=== PATIENT | female | born 1970 | race Caucasian/White ===

== ENCOUNTER 2019-12-05 06:00 | Emergency (ER) | payer OTHER, SELFPAY ==
[2019-12-05 06:32] VITALS: BP 142/89; PULSE 80; RESP 18; TEMP 36.6; O2SAT 99; BMI 32.0
--- NOTE | 2019-12-05 06:39 | ECG_ITS ---
Test Reason : EPIGASTRIC PAIN Blood Pressure : / mmHG Vent. Rate : 061 BPM Atrial Rate : 061 BPM P-R Int : 132 ms QRS Dur : 080 ms QT Int : 430 ms P-R-T Axes : 020 -02 028 degrees QTc Int : 432 ms Normal sinus rhythm with sinus arrhythmia Low voltage QRS Left axis deviation Abnormal ECG When compared with ECG of 17-OCT-2015 13:57, T wave inversion less evident in Lateral leads Referred By: May Keita Electronically Signed By:KIET MARTINS MD
--- NOTE | 2019-12-05 07:07 | ED_ITS ---
HPI - Abdominal Pain General Chief Complaint: Abdominal Pain Stated Complaint: Abd pain Time Seen by Provider: 12/05/19 07:07 Source: patient Mode of arrival: ambulatory Limitations: no limitations History of Present Illness MD elicited complaint: abdominal pain Onset (ago): day(s) (last night) Pain Consistency: constant Location: epigastric Severity: moderate Quality: stabbing and aching Radiation: epigastric Migration to: no migration Exacerbating factors: nothing Relieving factors: nothing Associated symptoms: nausea and vomiting Related Data Previous Rx's Medication Instructions Recorded hydrocodone-acetaminophen 1 tab PO Q6H PRN #14 tab 12/05/19 ondansetron 4 mg PO Q8H PRN #20 tab 12/05/19 Allergies Allergy/AdvReac Type Severity Reaction Status Date / Time No Known Allergies Allergy Verified 12/05/19 07:39 [No Known Allergies*] Review of Systems Review of Systems Constitutional : No Weight loss, No Fever, No Chills ENT/Mouth : No sore throat, No Rhinorrhea Eyes: No Swelling, No Redness Cardiovascular : No Chest Pain, No SOB, NoEdema Respiratory : No Cough, No Sputum, No Wheezing Gastrointestinal : Positive Nausea, Positive Vomiting, no Diarrhea, positive abdominal Pain, No Hematochezia, No Melena Genitourinary : No Dysuria, No Urinary Frequency, No Hematuria, No Urgency Musculoskeletal : No joint pain, No Myalgias, No Joint Swelling Skin : No Skin Lesions, No rash Neuro : No Weakness, No Numbness, No Dizziness, No Headache Psych : No Anxiety/Panic, No Depression Heme/Lymph: No Bruising, No Lymphadenopathy Endocrine : No Polyuria, No Polydipsia All other systems reviewed and are negative. Physical Exam Vital Signs: Vital Signs: Vital Signs Temp Pulse Resp BP Pulse Ox 12/05/19 10:06 61 16 144/60 H 98 12/05/19 09:10 62 130/60 12/05/19 09:00 97.7 F 65 18 130/69 97 12/05/19 06:32 97.8 F 80 18 142/89 H 99 Body Mass Index 32.0 Appearance: Alert. Oriented X3. No acute distress. Eyes: Pupils equal, round and reactive to light. ENT: Pharynx normal. Neck: Normal inspection. Neck supple. CVS: Normal heart rate and rhythm. Pulses normal. Respiratory: No respiratory distress. Breath sounds normal. Abdomen: Soft and moderate ttp epigastric and RUQ. Skin: Skin warm and dry. Normal skin color. Normal skin turgor. Extremities: No lower extremity edema. No calf ttp Neuro: Oriented X 3. No motor deficit. No sensory deficit. Course Course Course Narrative: tolerating PO feels much better, okay to go home, afebrile, pain resolved, no obstructive labs, will DC with pain meds and surgery referral MDM - Abdominal Pain MDM Narrative Medical decision making narrative: 49 yo female with epigastric and RUQ pain following eating canned spaghetti will need labs, EKG, US to evaluate GB, IVF and IV morphine for pain, dispo per results and findings Differential Diagnosis Differential diagnosis: Likely abdominal pain and gastritis Lab Data Result diagrams: 12/05/19 07:51 12/05/19 07:51 Labs: Lab Results 12/05/19 12/05/19 12/05/19 Range/Units 07:51 07:51 07:51 WBC 11.7 H (4.8-10.8) X10*3/uL RBC 4.35 (4.20-5.50) X10*6/uL Hgb 12.7 (12.0-16.0) g/dl Hct 39.1 (37-47) % MCV 89.9 (80-98) fL MCH 29.2 (27.0-33.0) pg MCHC 32.5 (31.0-35.0) g/dl RDW 12.6 (11.0-16.0) % Plt Count 312 (160-400) X10*3/uL MPV 9.8 (9.4-12.3) fL Immature Gran % (Auto) 0.3 (0.0-0.4) % Neut % (Auto) 69.8 (45-73) % Lymph % (Auto) 23.6 (20-40) % Glynn % (Auto) 4.9 (2-11) % Eos % (Auto) 1.1 (0-4) % Baso % (Auto) 0.3 (0-2) % Lymph # (Auto) 2.8 (1.2-4.9) X10*3/uL Glynn # (Auto) 0.6 (0.1-1.2) X10*3/uL Eos # (Auto) 0.1 (0.0-0.4) X10*3/uL Baso # (Auto) 0.0 (0.0-0.2) X10*3/uL Abs Immat Gran (auto) 0.04 H (0.00-0.03) X10*3/uL Absolute Neuts (auto) 8.2 (2.0-8.3) X10*3/uL Absolute Nucleated RBC 0.000 (0.0-0.012) X10*3/uL Nucleated RBC % (auto) 0.0 (0.0-0.2) /100WBC Hold Blue Top SEE NOTE Sodium (135-145) mmol/L Potassium (3.3-5.1) mmol/l Chloride (96-108) mmol/L Carbon Dioxide (22-29) mmol/L Anion Gap (12-20) BUN (9-16) mg/dL Creatinine (0.5-1.4) mg/dL Estim Creat Clear Calc Estimated GFR Random Glucose (60-115) mg/dL Calcium (8.4-10.2) mg/dL Magnesium (1.6-2.6) mg/dL Total Bilirubin (0.0-1.0) mg/dL Direct Bilirubin (0.0-0.5) mg/dL AST (5-31) U/L ALT (0-31) U/L Alkaline Phosphatase (39-117) U/L Troponin I High Sens (<3.5-17.0) ng/L Total Protein (6.5-8.0) g/dL Albumin (3.5-5.0) g/dL Lipase (8-78) U/L Urine Color YELLOW Urine Appearance CLEAR Urine pH 5.5 (5.0-8.0) Ur Specific [place] >= 1.030 H (1.005-1.025) Urine Protein NEG (NEG-TRACE) MG/DL Urine Glucose (UA) NEG (NEG) MG/DL Urine Ketones NEG (NEG) MG/DL Urine Blood 1+ H (NEG) Urine Nitrite NEG (NEG) Ur Leukocyte Esterase NEG (NEG) Urine RBC 1-4 (0) /HPF Urine WBC 0 (0-4) /HPF Urine WBC Clumps Cancelled Ur Squamous Epith Cells 1+ /LPF Ur Renal Epithelial Cell Cancelled Urine Crystals Cancelled [place] Biurate Crystals Cancelled Calcium Carbonate Cryst Cancelled Calcium Phosphate Cryst Cancelled Calcium Oxalate Crystal Cancelled Leucine Crystals Cancelled Cystine Crystals Cancelled Uric Acid Crystals Cancelled Triple Phos Crystals Cancelled Tyrosine Crystals Cancelled Other Crystals Cancelled Amorphous Sediment Cancelled Urine Bacteria NONE /LPF Epithelial Casts Cancelled Fatty Casts Cancelled Hyaline Casts Cancelled Granular Casts Cancelled Waxy Casts Cancelled RBC Casts Cancelled WBC Casts Cancelled Other Casts Cancelled Urine Mucus 2+ /LPF Urine Trichomonas Cancelled Urine Yeast Cancelled Urine Sperm Cancelled Ur Oval Fat Bodies Cancelled 12/05/19 12/05/19 Range/Units 07:51 07:51 WBC (4.8-10.8) X10*3/uL RBC (4.20-5.50) X10*6/uL Hgb (12.0-16.0) g/dl Hct (37-47) % MCV (80-98) fL MCH (27.0-33.0) pg MCHC (31.0-35.0) g/dl RDW (11.0-16.0) % Plt Count (160-400) X10*3/uL MPV (9.4-12.3) fL Immature Gran % (Auto) (0.0-0.4) % Neut % (Auto) (45-73) % Lymph % (Auto) (20-40) % [place]nn % (Auto) (2-11) % Eos % (Auto) (0-4) % Baso % (Auto) (0-2) % Lymph # (Auto) (1.2-4.9) X10*3/uL [place]nn # (Auto) (0.1-1.2) X10*3/uL Eos # (Auto) (0.0-0.4) X10*3/uL Baso # (Auto) (0.0-0.2) X10*3/uL Abs Immat Gran (auto) (0.00-0.03) X10*3/uL Absolute Neuts (auto) (2.0-8.3) X10*3/uL Absolute Nucleated RBC (0.0-0.012) X10*3/uL Nucleated RBC % (auto) (0.0-0.2) /100WBC Hold Blue Top Sodium 137 (135-145) mmol/L Potassium 4.5 (3.3-5.1) mmol/l Chloride 100 (96-108) mmol/L Carbon Dioxide 26 (22-29) mmol/L Anion Gap 16 (12-20) BUN 13 (9-16) mg/dL Creatinine 0.74 (0.5-1.4) mg/dL Estim Creat Clear Calc 89.7 Estimated GFR > 60 Random Glucose 140 H (60-115) mg/dL Calcium 9.3 (8.4-10.2) mg/dL Magnesium 1.8 (1.6-2.6) mg/dL Total Bilirubin 0.5 (0.0-1.0) mg/dL Direct Bilirubin < 0.2 (0.0-0.5) mg/dL AST 18 (5-31) U/L ALT 14 (0-31) U/L Alkaline Phosphatase 120 H (39-117) U/L Troponin I High Sens < 3.5 (<3.5-17.0) ng/L Total Protein 7.7 (6.5-8.0) g/dL Albumin 4.1 (3.5-5.0) g/dL Lipase 18 (8-78) U/L Urine Color Urine Appearance Urine pH (5.0-8.0) Ur Specific [place] (1.005-1.025) Urine Protein (NEG-TRACE) MG/DL Urine Glucose (UA) (NEG) MG/DL Urine Ketones (NEG) MG/DL Urine Blood (NEG) Urine Nitrite (NEG) Ur Leukocyte Esterase (NEG) Urine RBC (0) /HPF Urine WBC (0-4) /HPF Urine WBC Clumps Ur Squamous Epith Cells /LPF Ur Renal Epithelial Cell Urine Crystals [place] Biurate Crystals Calcium Carbonate Cryst Calcium Phosphate Cryst Calcium Oxalate Crystal Leucine Crystals Cystine Crystals Uric Acid Crystals Triple Phos Crystals Tyrosine Crystals Other Crystals Amorphous Sediment Urine Bacteria /LPF Epithelial Casts Fatty Casts Hyaline Casts Granular Casts Waxy Casts RBC Casts WBC Casts Other Casts Urine Mucus /LPF Urine Trichomonas Urine Yeast Urine Sperm Ur Oval Fat Bodies ECG Data Attestation: I personally reviewed and interpreted this ECG as follows: ECG interpretation date: 12/05/19 ECG interpretation time: 07:07 Interpretation: Rate: 61 Rhythm: NSR Left Hand: left Normal P waves. Normal KARIN. Normal QRS complex. ST T wave : inverted V1 - V3 qTC: normal prior studies: no change 2016 The study has been interpreted contemporaneously by me. . Discharge Plan Discharge Clinical Impression: Biliary colic Patient Disposition: Home, Self-Care Instructions: Biliary Colic (ED), Gallstones (ED) Additional Instructions: ALL LOW FAT ANY FAT WILL IRRITATE YOUR GALLBLADDER AND CAUSE YOU PAIN Prescriptions: New ondansetron 4 mg tablet,disintegrating 4 mg PO Q8H PRN (Reason: nausea and vomiting) Qty: 20 RF: 0 hydrocodone-acetaminophen 5-325 mg tablet 1 tab PO Q6H PRN (Reason: pain) Qty: 14 RF: 0 Referrals: Denisa Keller MD [Physician] - 2 days (CALL FOR APPOINTMENT) Stand Alone Forms: Work/School Release [facility] Past Medical History Medical History Bronchitis Chronic back pain Surgical History Tubal ligation status Social History Social History Alcohol intake: never Smoking Status: Never smoker Use of substances other than those prescribed or required for medical reasons: No Advance Directives: No Advance Directives Information Provided: No
--- NOTE | 2019-12-05 07:22 | US_ITS ---
EXAMINATION: ABDOMINAL ULTRASOUND CLINICAL INFORMATION: Right upper quadrant pain and vomiting COMPARISON: Previous CT of the abdomen and pelvis most recent March 2018 and abdominal ultrasound January 2013 TECHNIQUE: Grayscale and color imaging of the abdomen FINDINGS: The pancreas is unremarkable. The aorta and IVC are unremarkable. Liver echotexture may be slightly increased. There is an echogenic area in the central left lobe of the liver with geographic margins, question representing an area of focal fatty infiltration. No other focal liver lesion is seen. There is no intrahepatic or extrahepatic biliary duct dilatation. The gallbladder is upper normal in size measuring 4 x 4.5 x 10 cm in dimension. There is an echogenic shadowing density in the neck of the gallbladder suggestive of a gallstone. The gallbladder wall is upper normal in thickness measuring 3 mm. There is no gallbladder wall edema or pericholecystic fluid. The interventional technologist reports the patient is tender over the gallbladder. The common bile duct is normal in caliber measuring 5 mm. The kidneys are normal in contour and symmetric in size of the right kidney measuring 11.8 and the left 11 cm in length. No renal stone, mass or hydronephrosis is seen. There is no ascites. IMPRESSION: Upper normal-size gallbladder. Probable gallstone in the neck of the gallbladder. The interventional technologist reports the patient is tender over the gallbladder. Probable mild fatty infiltration of the liver.
[2019-12-05] MEDS: ondansetron HCL 4 MG/2 ML VIAL IVPUSH (07:55)
[2019-12-05] MEDS: 0.9 % Sodium Chloride 1,000 ML 999 ML IVCONT (07:55)
[2019-12-05] MEDS: Morphine Sulfate 4 MG/ML CARTRIDGE IVPUSH (07:56)
[2019-12-05 07:58] LABS: MANUAL DIFF FLAG NO
[2019-12-05 08:04] LABS: Basophils Percent Auto 0.3 % (0-2); Eosinophils Absolute Auto 0.1 X10*3/uL (0.0-0.4); Eosinophils Percent Auto 1.1 % (0-4); Hematocrit 39.1 % (37-47); Hemoglobin 12.7 g/dl (12.0-16.0); Imm Gran Abs Auto 0.04 X10*3/uL (0.00-0.03); Imm Gran Pct Auto 0.3 % (0.0-0.4); Lymphocytes Absolute Auto 2.8 X10*3/uL (1.2-4.9); Lymphocytes Percent Auto 23.6 % (20-40); Mean Corpuscular HGB Conc 32.5 g/dl (31.0-35.0); Mean Corpuscular Hemoglobin 29.2 pg (27.0-33.0); Mean Corpuscular Volume 89.9 fL (80-98); Mean Platelet Volume 9.8 fL (9.4-12.3); Monocytes Absolute Auto 0.6 X10*3/uL (0.1-1.2); Monocytes Percent Auto 4.9 % (2-11); Neutrophils Absolute Auto 8.2 X10*3/uL (2.0-8.3); Neutrophils Percent Auto 69.8 % (45-73); Platelet Count 312 X10*3/uL (160-400); Red Blood Count 4.35 X10*6/uL (4.20-5.50); Red Cell Distribution Width 12.6 % (11.0-16.0); White Blood Count 11.7 X10*3/uL (4.8-10.8)
[2019-12-05 08:05] LABS: Glucose Urine UA NEG (NEG); Leukocyte Esterase Urine NEG (NEG); Nitrite Urine NEG (NEG); PH 5.5 (5.0-8.0); Specific Gravity - Urine >= 1.030 (1.005-1.025); Urine Blood 1+ (NEG); Urine Ketones NEG (NEG); Urine Protein NEG (NEG-TRACE)
[2019-12-05 08:13] LABS: Appearance Urine CLEAR; Color Urine YELLOW
[2019-12-05 08:19] LABS: Mucus Urine 2+ /LPF; Squamous Epithelial Cell Urine 1+ /LPF; WBC Urine 0 /HPF (0-4)
[2019-12-05 08:40] LABS: Alanine Aminotransferase 14 U/L (0-31); Albumin Level 4.1 g/dL (3.5-5.0); Alkaline Phosphatase 120 U/L (39-117); Anion Gap 16 (12-20); Aspartate Amino Transferase 18 U/L (5-31); Bilirubin Direct < 0.2 mg/dL (0.0-0.5); Bilirubin Total 0.5 mg/dL (0.0-1.0); Blood Urea Nitrogen 13 mg/dL (9-16); Calcium 9.3 mg/dL (8.4-10.2); Carbon Dioxide 26 mmol/L (22-29); Chloride 100 mmol/L (96-108); Creatinine Clr Calc Pharmacy 89.7; Estimated Glomerular Filt Rate > 60; Glucose Random 140 mg/dL (60-115); Lipase 18 U/L (8-78); Magnesium 1.8 mg/dL (1.6-2.6); Potassium 4.5 mmol/l (3.3-5.1); Sodium 137 mmol/L (135-145); Total Protein 7.7 g/dL (6.5-8.0)
[2019-12-05 08:41] LABS: Troponin-I High Sensitivity < 3.5 ng/L (<3.5-17.0)
[2019-12-05 09:00] VITALS: BP 130/69; PULSE 65; RESP 18; TEMP 36.5; O2SAT 97
[2019-12-05 09:10] VITALS: BP 130/60; PULSE 62
--- NOTE | 2019-12-05 09:16 | PC.NURSE ---
PT OFF TO US
[2019-12-05] MEDS: diphenhydrAMINE HCL 50 MG/ML VIAL 25 MG IVPUSH (10:01)
[2019-12-05] MEDS: Metoclopramide HCl 10 MG/2 ML VIAL 5 MG IVPUSH (10:01)
[2019-12-05] MEDS: Ketorolac Tromethamine 30 MG/ML VIAL IVPUSH (10:01)
[2019-12-05 10:06] VITALS: BP 144/60; PULSE 61; RESP 16; O2SAT 98
== END 2019-12-05 11:49 | disposition home or self-care (01) ==
PROVIDERS: Emergency Provider Emergency Medicine; PCP Internal Medicine
DX: K80.50 Calculus of bile duct without cholangitis or cholecystitis without obstruction (principal); Z79.899 Other long term (current) drug therapy
CPT/HCPCS: 36415; 76700; 80048; 80076; 81001; 81003; 83690; 83735; 84484; 85025; 93005; 96361; 96374; 96375; 99284; J1200; J1885; J2270; J2405; J2765

== ENCOUNTER 2019-12-07 15:36 | Emergency (ER) | payer OTHER, SELFPAY ==
[2019-12-07 17:42] VITALS: BP 143/84; PULSE 68; RESP 18; TEMP 36.8; O2SAT 97; BMI 32.0
--- NOTE | 2019-12-07 17:58 | ED_ITS ---
HPI - Abdominal Pain General Chief Complaint: Abdominal Pain Stated Complaint: ABD PAIN Time Seen by Provider: 12/07/19 17:58 Source: patient Mode of arrival: ambulatory Limitations: no limitations History of Present Illness HPI narrative: Patient diagnosed with gallstones on Tuesday now with increased pain MD elicited complaint: abdominal pain Onset (ago): day(s) Pain Consistency: intermittent Quality: stabbing and aching Radiation: epigastric and chest Exacerbating factors: eating Associated symptoms: nausea Related Data Previous Rx's Medication Instructions Recorded hydrocodone-acetaminophen 1 tab PO Q6H PRN #14 tab 12/05/19 ondansetron 4 mg PO Q8H PRN #20 tab 12/05/19 naproxen [Naprosyn] 500 mg PO BID #20 tab 12/07/19 pantoprazole [Protonix] 40 mg PO DAILY #20 tab 12/07/19 Allergies Allergy/AdvReac Type Severity Reaction Status Date / Time No Known Allergies Allergy Verified 12/05/19 07:39 [No Known Allergies*] Review of Systems Constitutional: Reports no additional constitutional complaints Eyes: Reports no additional eye complaints Denies dizziness Cardiovascular: Reports no additional cardiovascular complaints Respiratory: Reports as per HPI Gastrointestinal: Reports no additional gastrointestinal complaints Genitourinary: Reports no additional female genitourinary complaints Musculoskeletal: Reports no additional musculoskeletal complaints Skin/Breast: Denies rash Reports system reviewed and no additional complaints, except as documented, Denies dizziness and Denies Sensory deficit (Neuro) Psychiatric: Denies anxiety Physical Exam Vital Signs: Vital Signs: Vital Signs Temp Pulse Resp BP Pulse Ox 12/07/19 17:42 98.2 F 68 18 143/84 H 97 Body Mass Index 32.0 Const: Other: in pain General: healthy appearing Nutritional Appearance: average body habitus Orientation/consciousness: oriented to person and patient oriented x3 Limitations: no limitations HENMT: Head: Yes normal to inspection Ears: external ears normal General nose exam: Normal external nose present Mouth: Normal oral and palatal mucosa present and oropharynx normal Throat: Yes posterior oropharynx normal Eyes: General: appearance normal, both eyes and all related structures Neck: Other: supple Neck: Yes normal visual inspection Chest: Chest palpation & inspection: normal inspection of the chest Resp: Auscultation: clear to auscultation bilaterally Cardio: Jugular venous distension: no JVD Rate: regular rate Rhythm: regular rhythm Heart sounds: S1 normal heart sound present and S2 normal heart sound present GI: Other: epigastric tenderness Inspection: Yes normal to inspection Palpation (GI): Soft to palpation, Tenderness to palpation present (GI) and No hepatosplenomegaly present Auscultation: normal bowel sounds : General: Yes no CVA tenderness Back/Spine/Pelvis: Back: no CVA tenderness Skin: General skin exam: no rashes or lesions noted Neuro: General: oriented to person and patient oriented x3 Cranial nerves: Yes CN's II-XII intact bilaterally Motor exam (neuro): 5/5 motor strength present throughout Sensory Exam: No Sensory deficit (Neuro) Extrem: General: Yes normal to inspection Psych: Appearance: grossly normal Course Course Course Narrative: labs relatively normal no evidence of pancreatitis or cholecystits will dc home MDM - Abdominal Pain MDM Narrative Medical decision making narrative: no evidence of pancreatitis or cholecystits will dc home Lab Data Result diagrams: 12/07/19 18:22 12/07/19 18:22 Labs: Lab Results 12/07/19 12/07/19 Range/Units 18:22 18:22 WBC 8.8 (4.8-10.8) X10*3/uL RBC 4.51 (4.20-5.50) X10*6/uL Hgb 13.4 (12.0-16.0) g/dl Hct 40.8 (37-47) % MCV 90.5 (80-98) fL MCH 29.7 (27.0-33.0) pg MCHC 32.8 (31.0-35.0) g/dl RDW 12.8 (11.0-16.0) % Plt Count 324 (160-400) X10*3/uL MPV 9.5 (9.4-12.3) fL Immature Gran % (Auto) 0.2 (0.0-0.4) % Neut % (Auto) 39.0 L (45-73) % Lymph % (Auto) 48.7 H (20-40) % [place] % (Auto) 7.5 (2-11) % Eos % (Auto) 4.3 H (0-4) % Baso % (Auto) 0.3 (0-2) % Lymph # (Auto) 4.3 (1.2-4.9) X10*3/uL [place] # (Auto) 0.7 (0.1-1.2) X10*3/uL Eos # (Auto) 0.4 (0.0-0.4) X10*3/uL Baso # (Auto) 0.0 (0.0-0.2) X10*3/uL Abs Immat Gran (auto) 0.02 (0.00-0.03) X10*3/uL Absolute Neuts (auto) 3.4 (2.0-8.3) X10*3/uL Absolute Nucleated RBC 0.000 (0.0-0.012) X10*3/uL Nucleated RBC % (auto) 0.0 (0.0-0.2) /100WBC Sodium 138 (135-145) mmol/L Potassium 4.3 (3.3-5.1) mmol/l Chloride 100 (96-108) mmol/L Carbon Dioxide 31 H (22-29) mmol/L Anion Gap 11 L (12-20) BUN 9 (9-16) mg/dL Creatinine 0.76 (0.5-1.4) mg/dL Estim Creat Clear Calc 87.3 Estimated GFR > 60 Random Glucose 93 (60-115) mg/dL Calcium 9.1 (8.4-10.2) mg/dL Total Bilirubin 0.3 (0.0-1.0) mg/dL Direct Bilirubin 0.2 (0.0-0.5) mg/dL AST 21 (5-31) U/L ALT 21 (0-31) U/L Alkaline Phosphatase 130 H (39-117) U/L Total Protein 7.4 (6.5-8.0) g/dL Albumin 4.1 (3.5-5.0) g/dL Lipase 15 (8-78) U/L Discharge Plan Discharge Clinical Impression: Biliary colic, Gallstones Patient Disposition: Home, Self-Care Instructions: Biliary Colic (ED), Gallstones (ED) Prescriptions: New pantoprazole [Protonix] 40 mg tablet,delayed release (DR/EC) 40 mg PO DAILY Qty: 20 RF: 0 naproxen [Naprosyn] 500 mg tablet 500 mg PO BID Qty: 20 RF: 0 No Action ondansetron 4 mg tablet,disintegrating 4 mg PO Q8H PRN (Reason: nausea and vomiting) Qty: 20 RF: 0 hydrocodone-acetaminophen 5-325 mg tablet 1 tab PO Q6H PRN (Reason: pain) Qty: 14 RF: 0 Referrals: Theresa Mendiola MD [Physician] - 2 days (call to get consult on your gallstones) PMFSH Past Medical History Medical History Bronchitis Chronic back pain Surgical History Tubal ligation status Social History Social History Alcohol intake: never Smoking Status: Never smoker Use of substances other than those prescribed or required for medical reasons: No Advance Directives: No Advance Directives Information Provided: Yes
[2019-12-07 18:29] LABS: MANUAL DIFF FLAG NO
[2019-12-07 18:31] LABS: Basophils Percent Auto 0.3 % (0-2); Eosinophils Absolute Auto 0.4 X10*3/uL (0.0-0.4); Eosinophils Percent Auto 4.3 % (0-4); Hematocrit 40.8 % (37-47); Hemoglobin 13.4 g/dl (12.0-16.0); Imm Gran Abs Auto 0.02 X10*3/uL (0.00-0.03); Imm Gran Pct Auto 0.2 % (0.0-0.4); Lymphocytes Absolute Auto 4.3 X10*3/uL (1.2-4.9); Lymphocytes Percent Auto 48.7 % (20-40); Mean Corpuscular HGB Conc 32.8 g/dl (31.0-35.0); Mean Corpuscular Hemoglobin 29.7 pg (27.0-33.0); Mean Corpuscular Volume 90.5 fL (80-98); Mean Platelet Volume 9.5 fL (9.4-12.3); Monocytes Absolute Auto 0.7 X10*3/uL (0.1-1.2); Monocytes Percent Auto 7.5 % (2-11); Neutrophils Absolute Auto 3.4 X10*3/uL (2.0-8.3); Platelet Count 324 X10*3/uL (160-400); Red Blood Count 4.51 X10*6/uL (4.20-5.50); Red Cell Distribution Width 12.8 % (11.0-16.0); White Blood Count 8.8 X10*3/uL (4.8-10.8)
[2019-12-07] MEDS: ondansetron HCL 4 MG/2 ML VIAL IVPUSH (18:32)
[2019-12-07] MEDS: Morphine Sulfate 4 MG/ML CARTRIDGE IVPUSH (18:32)
[2019-12-07] MEDS: 0.9 % Sodium Chloride 500 ML 1000 ML IV ×2 (18:33→18:34)
[2019-12-07 19:05] LABS: Alanine Aminotransferase 21 U/L (0-31); Albumin Level 4.1 g/dL (3.5-5.0); Alkaline Phosphatase 130 U/L (39-117); Anion Gap 11 (12-20); Aspartate Amino Transferase 21 U/L (5-31); Bilirubin Direct 0.2 mg/dL (0.0-0.5); Bilirubin Total 0.3 mg/dL (0.0-1.0); Blood Urea Nitrogen 9 mg/dL (9-16); Calcium 9.1 mg/dL (8.4-10.2); Carbon Dioxide 31 mmol/L (22-29); Chloride 100 mmol/L (96-108); Creatinine Clr Calc Pharmacy 87.3; Estimated Glomerular Filt Rate > 60; Glucose Random 93 mg/dL (60-115); Lipase 15 U/L (8-78); Potassium 4.3 mmol/l (3.3-5.1); Sodium 138 mmol/L (135-145); Total Protein 7.4 g/dL (6.5-8.0)
[2019-12-07] MEDS: Ketorolac Tromethamine 30 MG/ML VIAL IVPUSH (20:12)
== END 2019-12-07 21:08 | disposition home or self-care (01) ==
PROVIDERS: Emergency Provider Emergency Medicine; PCP Internal Medicine
DX: K80.50 Calculus of bile duct without cholangitis or cholecystitis without obstruction (principal); R10.9 Unspecified abdominal pain; R07.9 Chest pain, unspecified; Z79.899 Other long term (current) drug therapy
CPT/HCPCS: 36415; 80048; 80076; 83690; 85025; 96374; 96375; 99284; J1885; J2270; J2405

== ENCOUNTER → 2019-12-11 14:46 | Outpatient (BNVA) | payer OTHER, SELFPAY | PROVIDERS: PCP Internal Medicine; Visit Provider Surgery | DX: R10.13 Epigastric pain (principal); R10.11 Right upper quadrant pain | CPT/HCPCS: 99204 ==

== ENCOUNTER → 2019-12-14 10:34 | Outpatient (REF) | payer OTHER, SELFPAY ==
--- NOTE | 2019-12-14 | NM_ITS ---
EXAMINATION: BILIARY TRACT IMAGING STUDY WITH CCK CLINICAL INFORMATION: Epigastric pain.. COMPARISON: No previous biliary scan is available for comparison. Abdominal ultrasound dated 12/05/2019 is available for comparison.. TECHNIQUE: Serial gamma scintillation camera images were obtained over the abdomen for a total observation period of 90 minutes following the intravenous administration of 5 mCi Tc-99m Mebrofenin. FINDINGS: There is good concentration of activity in the liver by 5 minutes post injection. Biliary activity is visualized by 15 minutes. The gallbladder is well visualized by 40 minutes. Small bowel is well visualized by 20 minutes. At 60 minutes post radiopharmaceutical injection, a 30-minute infusion of 1.7 micrograms Sincalide was then begun and an additional 30 minutes of images were obtained. No significant gallbladder emptying is visualized during the sincalide infusion. At the end of the study there is marked abnormal retention of activity in the gallbladder but almost complete clearance of activity from the liver. Diffuse small bowel activity is also visualized at this time. The calculated gallbladder ejection fraction is 0% (normal gallbladder ejection fraction is greater than 35%). NM/NM hepatobiliary w pharm IMPRESSION: 1. Visualization of the gallbladder is evidence of a patent cystic duct and strong evidence against the diagnosis of acute cholecystitis. The common bile duct is patent. Liver function appears normal. 2. Poor gallbladder emptying and a low gallbladder ejection fraction are evidence of impaired gallbladder contractility and most likely due to chronic cholecystitis.
== END ==
LOC: HO.NUCMED 10:34
PROVIDERS: PCP Internal Medicine; Visit Provider Surgery
DX: R10.13 Epigastric pain (principal)
CPT/HCPCS: 78227; A9537; J2805

== ENCOUNTER 2020-06-13 14:49 | Outpatient (REF) | payer OTHER, SELFPAY | END 2020-06-13 14:50 | disposition home or self-care (01) | LOC: HO.LAB 14:49 | PROVIDERS: Visit Provider Internal Medicine | DX: Z20.822 Contact with and (suspected) exposure to COVID-19 (principal) | CPT/HCPCS: C9803; U0003; U0005 ==

== ENCOUNTER 2020-09-22 14:33 | Emergency (ER) | payer OTHER, SELFPAY | END 2020-09-22 16:03 | disposition left against medical advice (07) | PROVIDERS: Emergency Provider Emergency Medicine; PCP Internal Medicine | DX: M79.603 Pain in arm, unspecified (principal) ==

== ENCOUNTER 2020-10-17 12:31 | Emergency (ER) | payer OTHER, SELFPAY ==
[2020-10-17 12:47] VITALS: BP 133/62; PULSE 62; RESP 18; TEMP 37; O2SAT 97; BMI 32.9
--- NOTE | 2020-10-17 14:08 | ED.ALLEREA ---
HPI - Allergic Reaction General Chief complaint: Allergic Reaction Stated complaint: med reaction Time Seen by Provider: 10/17/20 14:06 Source: patient Mode of arrival: ambulatory Limitations: no limitations History of Present Illness HPI narrative: yesterday around 1pm received lidocaine with epi injection in L elbow for removal of chronic FB - felt some pain at the site yesterday so she took a motrin, last night noted lip swelling and numbness in her extremities MD complaint: facial swelling Onset (ago): day(s) (last night) Exposure: medication (lidocaine with epi) Known history of allergy to: none Symptoms: facial swelling, lip swelling and other (feels her body is numb) Severity: moderate Treatment prior to arrival: other (tried greg) Previous Allergic Reaction History: none Related Data Previous Rx's Medication Instructions Recorded hydrocodone 5 mg-acetaminophen 325 1 tab PO Q6H PRN #14 tab 12/04/20 mg tablet ondansetron 4 mg disintegrating 4 mg PO Q8H PRN #20 tab 12/04/20 tablet naproxen 500 mg tablet (Naprosyn) 500 mg PO BID #20 tab 12/06/20 pantoprazole 40 mg tablet,delayed 40 mg PO DAILY #20 tab 12/06/20 release (Protonix) prednisone 20 mg tablet 60 mg PO DAILY 5 Days #15 tab 10/17/20 Allergies Allergy/AdvReac Type Severity Reaction Status Date / Time No Known Allergies Allergy Verified 10/17/20 12:47 [No Known Allergies*] Review of Systems Review of Systems: Constitutional : No Fever, No Chills ENT/Mouth : positive oral swelling, No Hoarseness, No Swallowing Difficulty Eyes: No Eye Pain, No Swelling, No Redness Cardiovascular : No Chest Pain, No SOB Respiratory : No Cough, No Sputum, No Wheezing, No Smoke Exposure, No Dyspnea Gastrointestinal : No Nausea, No Vomiting, No Diarrhea, No abdominal Pain Genitourinary : No Dysuria, No Urinary Frequency, No Hematuria Musculoskeletal : No joint pain, No Myalgias, No Joint Swelling Skin : No Skin Lesions, positive rash Neuro : No Weakness, pos Numbness, No Headache Psych : No Anxiety/Panic, No Depression Heme/Lymph: No Bruising, No Lymphadenopathy Endocrine : No Polyuria, No Polydipsia All other systems reviewed and are negative PMFSH Past Medical History Attestation statement: The following information was validated with the patient. Medical History Bronchitis Chronic back pain Surgical History Tubal ligation status Family History Family History (Updated 12/11/19 @ 14:55 by YONG Go) Mother No problems noted. Father History of throat cancer Social History Social History Alcohol intake: never Advance Directives: No Advance Directives Information Provided: Yes Physical Exam Vital Signs: Vital Signs: Last Vital Signs Temp 98.6 F 10/17/20 12:47 Pulse 55 10/17/20 14:13 Resp 16 10/17/20 14:13 BP 131/84 10/17/20 14:13 Pulse Ox 98 10/17/20 14:13 Body Mass Index 32.9 Appearance: Alert. Oriented X3. No acute distress. Eyes: Pupils equal, round and reactive to light. ENT: mild swelling of both lips, posterior pharynx normal, chin swelling, normal dentition Neck: Normal inspection. Neck supple. CVS: Normal heart rate and rhythm. Pulses normal. Respiratory: No respiratory distress. Breath sounds normal. Abdomen: Soft and nontender. Skin: Skin warm and dry. Normal skin color. Normal skin turgor. Extremities: No lower extremity edema. No calf ttp Neuro: Oriented X 3. No motor deficit. No sensory deficit. Course Course Course Narrative: no worsening of symptoms, will start on steroids MDM - Allergic Reaction MDM Narrative Medical decision making narrative: 50 yo female with first time lidocaine injection for FB removal yesterday c/o lip swelling and feeling tingling in her whole body - at this time will need observation IV steroids, IV benadryl, IV pepcid, no cardiac complaints, no deeper swelling or issues with swelling noted Discharge Plan Discharge Clinical Impression: Allergic reaction Patient Disposition: Home, Self-Care Instructions: General Allergic Reaction (ED) Additional Instructions: return to ED for any worsening symptoms or concerns Prescriptions: New prednisone 20 mg tablet 60 mg PO DAILY 5 Days Qty: 15 RF: 0 No Action ondansetron 4 mg tablet,disintegrating 4 mg PO Q8H PRN (Reason: nausea and vomiting) Qty: 20 RF: 0 hydrocodone-acetaminophen 5-325 mg tablet 1 tab PO Q6H PRN (Reason: pain) Qty: 14 RF: 0 pantoprazole [Protonix] 40 mg tablet,delayed release (DR/EC) 40 mg PO DAILY Qty: 20 RF: 0 naproxen [Naprosyn] 500 mg tablet 500 mg PO BID Qty: 20 RF: 0 Stand Alone Forms: Work/School Release
[2020-10-17 14:13] VITALS: BP 131/84; PULSE 55; RESP 16; O2SAT 98
[2020-10-17] MEDS: methylPREDNISolone Sod Succ 125 MG/2 ML VIAL IVPUSH (14:30)
[2020-10-17] MEDS: Famotidine/PF 20 MG/2 ML VIAL IVPUSH (14:30)
[2020-10-17] MEDS: diphenhydrAMINE HCL 50 MG/ML VIAL 25 MG IVPUSH (14:30)
== END 2020-10-17 16:13 | disposition home or self-care (01) ==
PROVIDERS: Emergency Provider Emergency Medicine
DX: R22.0 Localized swelling, mass and lump, head (principal); T41.3X5A Adverse effect of local anesthetics, initial encounter; Y92.9 Unspecified place or not applicable
CPT/HCPCS: 96374; 96375; 99284; J1200; J2930

== ENCOUNTER 2020-10-24 18:44 | Emergency (ER) | payer OTHER, SELFPAY ==
[2020-10-24 19:51] VITALS: BP 126/63; PULSE 69; RESP 16; TEMP 36.9; O2SAT 99; BMI 32.9
--- NOTE | 2020-10-24 20:08 | ED.ALLEREA ---
HPI - Allergic Reaction General Chief complaint: Allergic Reaction <GRACE Castorena Last Filed: 10/24/20 20:54> Stated complaint: reaction to med <Denisa Santoro PA-C - Last Filed: 10/24/20 20:54> Time Seen by Provider: 10/24/20 19:59 <Denisa Santoro PA-C - Last Filed: 10/24/20 20:54> Source: patient <GRACE Castorena Last Filed: 10/24/20 20:54> Mode of arrival: ambulatory <GRACE Castorena Last Filed: 10/24/20 20:54> Limitations: no limitations <GRACE Castorena Last Filed: 10/24/20 20:54> History of Present Illness HPI narrative: Patient is a 50-year-old female with a past medical history of chronic back pain complaining of bad acid reflux, facial swelling, chest discomfort, dizziness and diarrhea. Patient states on 10/16 at 13:00 she was given a lidocaine with epi injection so she could have a foreign body removed from her elbow. She states that she had some facial swelling from the injection to the site so she came to this emergency department. She was sent home with prednisone 60mg PO daily which she has been taking. She states she took for 5 days in her last dose was 3 days ago. now is stating she has a tingling, bad acid reflux, diarrhea and chest tightness, dizziness like she is off-balance which is worse when she walks, or changes position. She states she does have seasonal allergies and takes an allergy pill every 2-3 days but does not take it daily. She denies any fevers cough or vomiting. She denies bloody or black stools <GRACE Castorena Last Filed: 10/24/20 20:54> Related Data Home medications: Previous Rx's Medication Instructions Recorded hydrocodone 5 mg-acetaminophen 325 1 tab PO Q6H PRN #14 tab 1014/20 mg tablet ondansetron 4 mg disintegrating 4 mg PO Q8H PRN #20 tab 12/04/20 tablet naproxen 500 mg tablet (Naprosyn) 500 mg PO BID #20 tab 10/16/20 pantoprazole 40 mg tablet,delayed 40 mg PO DAILY #20 tab 12/07/19 release (Protonix) prednisone 20 mg tablet 60 mg PO DAILY 5 Days #15 tab 10/17/20 famotidine 20 mg tablet 20 mg PO BEDTIME #10 tab 10/24/20 <Denisa Santoro PA-C - Last Filed: 10/24/20 20:54> Allergies/adverse reactions: Allergies Allergy/AdvReac Type Severity Reaction Status Date / Time No Known Allergies Allergy Verified 10/24/20 19:51 [No Known Allergies*] <Denisa Santoro PA-C - Last Filed: 10/24/20 20:54> Review of Systems Review of Systems: Yes all other systems are reviewed and are negative <Denisa Santoro PA-C - Last Filed: 10/24/20 20:54> [facility] Past Medical History Medical History: Medical History Bronchitis Chronic back pain <Denisa Santoro PA-C - Last Filed: 10/24/20 20:54> Surgical History: Surgical History Tubal ligation status <Denisa Santoro PA-C - Last Filed: 10/24/20 20:54> Family History Family History: Family History Mother No problems noted. Father History of throat cancer <Denisa Santoro PA-C - Last Filed: 10/24/20 20:54> Social History Social History: Social History Alcohol intake: never Advance Directives: No Advance Directives Information Provided: No <Denisa Santoro PA-C - Last Filed: 10/24/20 20:54> Physical Exam Vital Signs: Vital Signs: Last Vital Signs Temp 98.5 F 10/24/20 19:51 Pulse 59 10/24/20 21:46 Resp 16 10/24/20 21:46 BP 119/58 L 10/24/20 21:46 Pulse Ox 97 10/24/20 21:46 Body Mass Index 32.9 <Denisa Santoro PA-C - Last Filed: 10/24/20 20:54> Vital Signs: Last Vital Signs Temp 98.5 F 10/24/20 19:51 Pulse 59 10/24/20 21:46 Resp 16 10/24/20 21:46 BP 119/58 L 10/24/20 21:46 Pulse Ox 97 10/24/20 21:46 Body Mass Index 32.9 <NORI SoriaP- - Last Filed: 10/25/20 01:50> Const: General: cooperative, healthy appearing, comfortable, no acute distress and well developed <Denisa Santoro PA-C - Last Filed: 10/24/20 20:54> Orientation/consciousness: patient oriented x3 <Denisa Santoro PA-C - Last Filed: 10/24/20 20:54> Limitations: no limitations <Denisa Santoro PA-C - Last Filed: 10/24/20 20:54> HENMT: Head: Yes normal to inspection, Yes No palpable skull fracture present, Yes normocephalic and Yes atraumatic <Denisa Santoro PA-C - Last Filed: 10/24/20 20:54> Ears: hearing grossly normal bilaterally, external ears normal, TM normal on the right and TM abnormal with fluid behind the TM on the left <Denisa Santoro PA-C - Last Filed: 10/24/20 20:54> General nose exam: Normal external nose present <GRACE Castorena Last Filed: 10/24/20 20:54> Face and sinus: Yes normal facial exam, Yes sinuses nontender and Yes face symmetric <Denisa Santoro PA-C - Last Filed: 10/24/20 20:54> Mouth: Normal oral and palatal mucosa present, lip normal, tongue normal, oropharynx normal and moist mucous membranes <GRACE Castorena Last Filed: 10/24/20 20:54> Teeth and gingiva: dentition normal <GRACE Castorena Last Filed: 10/24/20 20:54> Eyes: General: appearance normal, both eyes and all related structures <Denisa Santoro PA-C - Last Filed: 10/24/20 20:54> Pupils: Equal, round and reactive pupils present <Denisa Santoro PA-C Thad Last Filed: 10/24/20 20:54> EOM: EOMs intact bilaterally <Denisa Santoro PA-C Thad Last Filed: 10/24/20 20:54> Neck: Neck: Yes normal visual inspection and Yes full ROM <Densia Santoro PA-C - Last Filed: 10/24/20 20:54> Resp: Effort & Inspection: normal respiratory effort and able to speak in complete sentences <Denisa Sanotro PA-C Thad Last Filed: 10/24/20 20:54> Skin: General skin exam: no rashes or lesions noted <Denisa Santoro PA-C Thad Last Filed: 10/24/20 20:54> Neuro: General: patient oriented x3 <SHANNAN CastorenaThadInna Thad Last Filed: 10/24/20 20:54> Cranial nerves: Yes Equal, round and reactive pupils present <Denisa Santoro PA-C Thad Last Filed: 10/24/20 20:54> Extrem: General: Yes normal to inspection <Denisa Santoro PA-C Thad Last Filed: 10/24/20 20:54> Course Course Course Narrative: Patient is a 50-year-old female with a past medical history of chronic back pain complaining of bad acid reflux, facial swelling, chest discomfort, dizziness and diarrhea. VSS. Physical exam unremarkable except for fluid behind the left TM. Discussed with Dr. Garcia, since been 3 days since the patient took the prednisone it is likely the prednisone is out of her system by now. The acid reflux/chest tightness is likely a side effect from the prednisone. Will get an EKG and give a GI cocktail. Will give meclizine for the dizziness, patient has a ride home. <Denisa Santoro PA-C Thad Last Filed: 10/24/20 20:54> Reevaluation(s) Reevaluation #1: EKG is in sinus bradycardia at 57 beats per minute, Dr. Crystal signed off on. Patient has T-wave inversions V1 through V3 but they are on her previous EKG 12/05/2019. Patient does not want to take the viscous lidocaine because she is afraid she will have a reaction to it. So she is just getting Maalox. Sign out to KEVAN Swift <Denisa Santoro PA-C - Last Filed: 10/24/20 20:54> Time: 20:49 <GRACE Castorena Last Filed: 10/24/20 20:54> Reevaluation #2: Patient reports that she is feeling better. We will discharge her home and she can take her Flonase and Jojo. I will give her script for Pepcid and she can take it on as-needed basis in the evening <EMILY Soria-ESEQUIEL - Last Filed: 10/25/20 01:50> Discharge Plan Discharge Clinical Impression: Dizziness, Medication reaction <GRACE Castorena Last Filed: 10/24/20 20:54> Patient Disposition: Home, Self-Care <GRACE Castorena Last Filed: 10/24/20 20:54> Instructions: Adverse Drug Reaction (ED), Dizziness (ED) <GRACE Castorena Last Filed: 10/24/20 20:54> Additional Instructions: You were seen here today after having allergic reaction to possibly lidocaine and prednisone. Please take your Flonase and Jojo every day as prescribed. I will send you a script for famotidine and you can take that on as needed basis daily. Please follow-up with your primary care provider next week. You may return to emergency department if your symptoms will get worse or if you experience any additional concerning symptoms <Denisa Santoro PA-C - Last Filed: 10/24/20 20:54> Prescriptions: New famotidine 20 mg tablet 20 mg PO BEDTIME Qty: 10 RF: 0 No Action ondansetron 4 mg tablet,disintegrating 4 mg PO Q8H PRN (Reason: nausea and vomiting) Qty: 20 RF: 0 hydrocodone-acetaminophen 5-325 mg tablet 1 tab PO Q6H PRN (Reason: pain) Qty: 14 RF: 0 prednisone 20 mg tablet 60 mg PO DAILY 5 Days Qty: 15 RF: 0 pantoprazole [Protonix] 40 mg tablet,delayed release (DR/EC) 40 mg PO DAILY Qty: 20 RF: 0 naproxen [Naprosyn] 500 mg tablet 500 mg PO BID Qty: 20 RF: 0 <Denisa Santoro PA-C - Last Filed: 10/24/20 20:54> Interventions: ED Discharge Assessment Last Done: 10/24/20 22:45 <Denisa Santoro PA-C - Last Filed: 10/24/20 20:54> Discharge Date/Time: 10/24/20 22:48 <Denisa Santoro PA-C - Last Filed: 10/24/20 20:54>
--- NOTE | 2020-10-24 20:23 | ECG_ITS ---
Test Reason : ALLERGIC REATION/CP Blood Pressure : / mmHG Vent. Rate : 057 BPM Atrial Rate : 057 BPM P-R Int : 142 ms QRS Dur : 078 ms QT Int : 422 ms P-R-T Axes : 028 -16 036 degrees QTc Int : 410 ms Sinus bradycardia Low voltage QRS Nonspecific T wave abnormality Abnormal ECG When compared with ECG of 05-DEC-2019 06:39, No significant change was found Referred By: Denisa Santoro Electronically Signed By:ALON MCFARLANE
[2020-10-24] MEDS: Meclizine HCl 25 MG TABLET PO (20:46)
[2020-10-24] MEDS: Magnesium Hydrox/Alum Hydrox 30 ML ORAL.SUSP PO (20:46)
[2020-10-24 21:03] VITALS: BP 124/45; PULSE 56; RESP 20; O2SAT 99
[2020-10-24 21:46] VITALS: BP 119/58; PULSE 59; RESP 16; O2SAT 97
== END 2020-10-24 22:48 | disposition home or self-care (01) ==
PROVIDERS: Emergency Provider Internal Medicine
DX: R42 Dizziness and giddiness (principal); T38.0X5A Adverse effect of glucocorticoids and synthetic analogues, initial encounter; Y92.019 Unspecified place in single-family (private) house as the place of occurrence of the external cause
CPT/HCPCS: 93005; 99283; 99284

== ENCOUNTER 2021-04-20 19:52 | Emergency (ER) | payer OTHER, SELFPAY ==
--- NOTE | 2021-04-20 | ECG_ITS ---
Test Reason : HEARTBURN Blood Pressure : / mmHG Vent. Rate : 053 BPM Atrial Rate : 053 BPM P-R Int : 128 ms QRS Dur : 088 ms QT Int : 428 ms P-R-T Axes : 018 -09 059 degrees QTc Int : 401 ms Sinus bradycardia Otherwise normal ECG When compared with ECG of 24-OCT-2020 20:35, No significant change was found Referred By: Generic ED Physician Electronically Signed By:Cristian Muller
[2021-04-20 20:09] VITALS: BP 126/45; PULSE 62; RESP 18; TEMP 36.8; O2SAT 97; BMI 32.9
[2021-04-20 20:31] LABS: MANUAL DIFF FLAG NO
[2021-04-20 20:38] LABS: Basophils Percent Auto 0.4 % (0-2); Eosinophils Absolute Auto 0.1 X10*3/uL (0.0-0.4); Eosinophils Percent Auto 1.4 % (0-4); Hemoglobin 13.5 g/dl (12.0-16.0); Imm Gran Abs Auto 0.02 X10*3/uL (0.00-0.03); Imm Gran Pct Auto 0.2 % (0.0-0.4); Lymphocytes Absolute Auto 4.9 X10*3/uL (1.2-4.9); Lymphocytes Percent Auto 49.9 % (20-40); Mean Corpuscular HGB Conc 32.1 g/dl (31.0-35.0); Mean Corpuscular Hemoglobin 29.3 pg (27.0-33.0); Mean Corpuscular Volume 91.1 fL (80.0-98.0); Mean Platelet Volume 9.7 fL (9.4-12.3); Monocytes Absolute Auto 0.7 X10*3/uL (0.1-1.2); Monocytes Percent Auto 6.8 % (2-11); Neutrophils Percent Auto 41.3 % (45-73); Platelet Count 332 X10*3/uL (160-400); Red Blood Count 4.61 X10*6/uL (4.20-5.50); Red Cell Distribution Width 12.8 % (11.0-16.0); White Blood Count 9.7 X10*3/uL (4.8-10.8)
[2021-04-20 20:49] LABS: Anion Gap 12 (12-20); Blood Urea Nitrogen 12 mg/dL (9-16); Calcium 9.6 mg/dL (8.4-10.2); Carbon Dioxide 29 mmol/L (22-29); Chloride 101 mmol/L (96-108); Creatinine Clr Calc Pharmacy 82.2; Estimated Glomerular Filt Rate > 60; Glucose Random 103 mg/dL (60-115); Sodium 138 mmol/L (135-145)
[2021-04-20 20:56] LABS: Troponin-I High Sensitivity < 3.5 ng/L (<3.5-17.0)
--- NOTE | 2021-04-20 22:50 | ED.GENADULT ---
HPI - General Adult General Chief complaint: General Medical Stated complaint: heartburn x3 Time Seen by Provider: 04/20/21 22:50 Source: patient Mode of arrival: ambulatory Limitations: no limitations History of Present Illness HPI narrative: Patient with history of heartburn in the past lately doing good not taking any medication for last 2 days noticed epigastric pain felt slightly lightheaded no chest pain took Pepto-Bismol and felt better , primary care doctor to go to the hospital for further workup no chest pain or palpitation or shortness of breath Related Data Previous Rx's Medication Instructions Recorded hydrocodone 5 mg-acetaminophen 325 1 tab PO Q6H PRN #14 tab 12/04/ mg tablet ondansetron 4 mg disintegrating 4 mg PO Q8H PRN #20 tab 12/05/19 tablet naproxen 500 mg tablet (Naprosyn) 500 mg PO BID #20 tab 12/07/19 pantoprazole 40 mg tablet,delayed 40 mg PO DAILY #20 tab 12/07/19 release (Protonix) prednisone 20 mg tablet 60 mg PO DAILY 5 Days #15 tab 10/17/20 famotidine 20 mg tablet 20 mg PO BEDTIME #10 tab 10/24/20 omeprazole 40 mg capsule,delayed 40 mg PO DAILY #30 cap 04/20/21 release sucralfate 1 gram tablet 1 g PO TID #90 tab 04/20/21 Allergies Allergy/AdvReac Type Severity Reaction Status Date / Time No Known Allergies Allergy Verified 04/20/21 20:09 [No Known Allergies*] Review of Systems Review of Systems: Yes all other systems are reviewed and are negative PMFSH Past Medical History Medical History Bronchitis Chronic back pain Surgical History Tubal ligation status Family History Family History Mother No problems noted. Father History of throat cancer Social History Social History Alcohol intake: never Advance Directives: No Patient : No Physical Exam ED Vital Signs: Vital Signs - 24 hr 04/20/21 20:09 04/20/21 23:56 Temperature 98.2 F Pulse Rate 62 55 Respiratory Rate 18 16 Blood Pressure 126/45 L 138/66 Pulse Oximetry 97 99 BMI result Body Mass Index 32.9 Appearance: Alert. Oriented X3. No acute distress. ENT: Pharynx normal. Oral Mucosa moist Neck: Normal inspection. Neck supple. CVS: Normal heart rate and rhythm. Pulses normal. Respiratory: No respiratory distress. Equal air entry bilateral, no wheezing/rales/rhonchi Abdomen: Soft , tenderness in epigastric area no rebound tenderness or guarding Bowel sounds are present, no mass palpable, Skin: Skin warm and dry. Normal skin color. Normal skin turgor. Extremities: No lower extremity edema. No calf tenderness Neuro: Oriented X 3. Medical Decision Making MDM Narrative Medical decision making narrative: Patient's epigastric tenderness history of gastritis in the past no tenderness in the right upper quadrant area labs are stable normal LFTs on like this. Patient felt better after Maalox. Will discharge patient home on sucralfate and Prilosec Lab Data Result diagrams: 04/20/21 20:20 04/20/21 20:20 Labs: Lab Results 04/20/21 04/20/21 04/20/21 Range/Units 20:20 20:20 20:20 WBC 9.7 (4.8-10.8) X10*3/uL RBC 4.61 (4.20-5.50) X10*6/uL Hgb 13.5 (12.0-16.0) g/dl Hct 42.0 (37.0-47.0) % MCV 91.1 (80.0-98.0) fL MCH 29.3 (27.0-33.0) pg MCHC 32.1 (31.0-35.0) g/dl RDW 12.8 (11.0-16.0) % Plt Count 332 (160-400) X10*3/uL MPV 9.7 (9.4-12.3) fL Immature Gran % (Auto) 0.2 (0.0-0.4) % Neut % (Auto) 41.3 L (45-73) % Lymph % (Auto) 49.9 H (20-40) % [place] % (Auto) 6.8 (2-11) % Eos % (Auto) 1.4 (0-4) % Baso % (Auto) 0.4 (0-2) % Lymph # (Auto) 4.9 (1.2-4.9) X10*3/uL [place] # (Auto) 0.7 (0.1-1.2) X10*3/uL Eos # (Auto) 0.1 (0.0-0.4) X10*3/uL Baso # (Auto) 0.0 (0.0-0.2) X10*3/uL Abs Immat Gran (auto) 0.02 (0.00-0.03) X10*3/uL Absolute Neuts (auto) 4.0 (2.0-8.3) x10*3/uL Absolute Nucleated RBC 0.000 (0.0-0.012) X10*3/uL Nucleated RBC % (auto) 0.0 (0.0-0.2) /100WBC Sodium 138 (135-145) mmol/L Potassium 4.0 (3.3-5.1) mmol/L Chloride 101 (96-108) mmol/L Carbon Dioxide 29 (22-29) mmol/L Anion Gap 12 (12-20) BUN 12 (9-16) mg/dL Creatinine 0.81 (0.5-1.4) mg/dL Estim Creat Clear Calc 82.2 Estimated GFR > 60 Random Glucose 103 (60-115) mg/dL Calcium 9.6 (8.4-10.2) mg/dL Total Bilirubin 0.3 (0.0-1.0) mg/dL Direct Bilirubin 0.2 (0.0-0.5) mg/dL AST 16 (5-31) U/L ALT 25 (0-31) U/L Alkaline Phosphatase 127 H (39-117) U/L Troponin I High Sens < 3.5 (<3.5-17.0) ng/L Total Protein 7.5 (6.5-8.0) g/dL Albumin 4.3 (3.5-5.0) g/dL Lipase 21 (8-78) U/L ECG Data Attestation: I personally reviewed and interpreted this ECG as follows: Interpretation: Sinus rhythm heart rate 53 beats per minute normal intervals normal axis no acute ST-T depressions impression sinus bradycardia no acute ischemia Scores Heart Score History: -0- slightly suspicious ECG: -0- normal Age: -1- >45 - <65 Risk factory: -1- 1 or 2 risk factors Troponin: -0- < or = normal limit Score: 2 Risk: 1.7% Discharge Plan Discharge Clinical Impression: Acute gastritis Patient Disposition: Home, Self-Care Instructions: Gastritis (ED) Additional Instructions: Avoid fried food Take medication as prescribed and follow with PCP/front office supervisor Prescriptions: New omeprazole 40 mg capsule,delayed release(DR/EC) 40 mg PO DAILY Qty: 30 0RF sucralfate 1 gram tablet 1 g PO TID Qty: 90 0RF No Action ondansetron 4 mg tablet,disintegrating 4 mg PO Q8H PRN (Reason: nausea and vomiting) Qty: 20 0RF hydrocodone-acetaminophen 5-325 mg tablet 1 tab PO Q6H PRN (Reason: pain) Qty: 14 0RF prednisone 20 mg tablet 60 mg PO DAILY 5 Days Qty: 15 0RF famotidine 20 mg tablet 20 mg PO BEDTIME Qty: 10 0RF pantoprazole [Protonix] 40 mg tablet,delayed release (DR/EC) 40 mg PO DAILY Qty: 20 0RF naproxen [Naprosyn] 500 mg tablet 500 mg PO BID Qty: 20 0RF Interventions: ED Discharge Assessment Last Done: 04/20/21 23:57 Discharge Date/Time: 04/20/21 23:59
[2021-04-20 23:17] LABS: Alanine Aminotransferase 25 U/L (0-31); Albumin Level 4.3 g/dL (3.5-5.0); Alkaline Phosphatase 127 U/L (39-117); Aspartate Amino Transferase 16 U/L (5-31); Bilirubin Direct 0.2 mg/dL (0.0-0.5); Bilirubin Total 0.3 mg/dL (0.0-1.0); Lipase 21 U/L (8-78); Total Protein 7.5 g/dL (6.5-8.0)
[2021-04-20] MEDS: Magnesium Hydrox/Alum Hydrox 30 ML ORAL.SUSP PO (23:22)
[2021-04-20] MEDS: Omeprazole 40 MG CAPSULE.DR PO (23:22)
[2021-04-20 23:56] VITALS: BP 138/66; PULSE 55; RESP 16; O2SAT 99
== END 2021-04-20 23:59 | disposition home or self-care (01) ==
PROVIDERS: Emergency Provider Internal Medicine
DX: K29.00 Acute gastritis without bleeding (principal); R12 Heartburn
CPT/HCPCS: 36415; 80048; 80076; 83690; 84484; 85025; 93005; 99283; 99284

== ENCOUNTER 2021-09-28 03:42 | Inpatient (IN) | payer OTHER, SELFPAY ==
--- NOTE | 2021-09-28 | ECG_ITS ---
Test Reason : GERD Blood Pressure : / mmHG Vent. Rate : 059 BPM Atrial Rate : 059 BPM P-R Int : 122 ms QRS Dur : 080 ms QT Int : 434 ms P-R-T Axes : 034 005 035 degrees QTc Int : 429 ms Artifact in tracing Sinus bradycardia Nonspecific ST and T wave abnormality Borderline ECG When compared with ECG of 20-APR-2021 20:20, No significant change was found Referred By: Generic ED Physician Electronically Signed By:NATALIE AVALOS
--- NOTE | ~2021-09-28 | CT_ITS ---
EXAMINATION: CT ABDOMEN AND PELVIS WITH CONTRAST CLINICAL INFORMATION: Right upper quadrant pain COMPARISON: CT abdomen pelvis 03/29/2018. Ultrasound abdomen October 10 TECHNIQUE: Multidetector volumetric images were obtained from the superior aspect of the liver through the pubic symphysis following administration 85 mL of Omnipaque 350 intravenous contrast. Sagittal and coronal reformatted images were obtained on the technologist's workstation. Oral contrast: No This CT examination was performed using dose optimization techniques as appropriate, variously including the following: *Automated exposure control *Adjustment of mA and/or kV according to patient size (this includes techniques or standardized protocols for targeted exams where dose is matched to indication/reason for exam; i.e. extremities or head) *Use of iterative reconstruction technique DLP: 777 mGy-cm FINDINGS: LUNG BASES: The visualized lung bases are unremarkable. LIVER, GALLBLADDER, AND BILIARY TREE: The liver is normal in size, shape, and attenuation. No focal hepatic lesion or biliary ductal dilatation is present. There is mild thickening of the gallbladder wall near the bare area, coronal image 25/86 series 5. Gallbladder wall measures 5 mm. No dilatation of the bile ducts. PANCREAS: Unremarkable. SPLEEN: Unremarkable. ADRENAL GLANDS: Unremarkable. KIDNEYS AND URETERS: The kidneys are normal in size, shape, and attenuation. No hydronephrosis, hydroureter, or calculi seen. No perinephric stranding. BLADDER: Unremarkable. GASTROINTESTINAL TRACT: There are numerous diverticula of the sigmoid and descending colon. Colon. There is no diverticulitis. There is no bowel wall thickening /edema. No pericolonic edema of the mesentery. There is no bowel obstruction. There is a moderate volume of stool in the colon. The appendix is normal . The small bowel loops are unremarkable. The stomach is normal. There is no hiatal hernia. ABDOMINAL WALL: No significant hernia is appreciated. LYMPH NODES: Normal. VASCULAR: Unremarkable. PELVIC VISCERA: Unremarkable. OSSEOUS STRUCTURES: Unremarkable. CT/CT abdomen pelvis w con IMPRESSION: 1. Mild thickening of gallbladder wall. This could be seen with chronic or acute cholecystitis. No bile duct dilatation. 2. Scattered diverticula of the colon. No acute change of the bowel. Fleischner guidelines were followed.
--- NOTE | ~2021-09-28 | US_ITS ---
EXAMINATION: US ABDOMEN LIMITED CLINICAL INFORMATION: Right upper quadrant and epigastric pain. COMPARISON: Ultrasound abdomen 12/05/2019 and HIDA scan 12/14/2019 TECHNIQUE: Real-time imaging of the right upper quadrant abdominal viscera. FINDINGS: PANCREAS: Normal. LIVER: The liver is normal in size. The liver contour is normal. Parenchymal echogenicity is normal. There is a geographic area of hyperechogenicity suggesting possible focal fat. Similar finding was seen on the prior study. No worrisome focal hepatic lesion. There is no intrahepatic biliary duct dilatation seen. GALLBLADDER: The gallbladder contains multiple stones some of which are impacted in the gallbladder neck. The gallbladder wall measures 5 to 6 mm in thickness. No pericholecystic fluid present. Positive Hwang's sign is present with tenderness over the gallbladder with pressure from the ultrasound probe according to the account financial manager COMMON BILE DUCT: Mildly dilated measuring 0.8 cm in diameter. RIGHT KIDNEY: Normal. No hydronephrosis. No renal calculi or focal parenchymal lesions. The kidney measures 10.8 cm in maximum dimension. FREE FLUID: None. US/US abdomen limited IMPRESSION: Gallbladder with calculi and an impacted stone at the gallbladder neck with a positive Hwang's sign with associated mildly dilated common bile duct. Findings are suggestive of cholecystitis. In 2019, the patient had similar scenario, went on to have a HIDA scan which showed a patent cystic duct but with poor gallbladder emptying and low ejection fraction thought to represent chronic cholecystitis
[2021-09-28 03:51] VITALS: BP 154/69; PULSE 63; RESP 20; TEMP 36.3; O2SAT 99; BMI 32.9
[2021-09-28] MEDS: Ondansetron ODT 4 MG TAB.RAPDIS SUBLINGUAL (03:58)
[2021-09-28 04:09] LABS: Basophils Absolute Auto 0.1 X10*3/uL (0.0-0.2); Basophils Percent Auto 0.3 % (0-2); Eosinophils Absolute Auto 0.4 X10*3/uL (0.0-0.4); Eosinophils Percent Auto 2.9 % (0-4); Hematocrit 41.5 % (37.0-47.0); Hemoglobin 13.4 g/dl (12.0-16.0); Imm Gran Abs Auto 0.04 X10*3/uL (0.00-0.03); Imm Gran Pct Auto 0.3 % (0.0-0.4); Lymphocytes Percent Auto 53.3 % (20-40); Mean Corpuscular HGB Conc 32.3 g/dl (31.0-35.0); Mean Corpuscular Hemoglobin 29.3 pg (27.0-33.0); Mean Corpuscular Volume 90.6 fL (80.0-98.0); Mean Platelet Volume 9.6 fL (9.4-12.3); Monocytes Absolute Auto 0.9 X10*3/uL (0.1-1.2); Monocytes Percent Auto 6.4 % (2-11); Neutrophils Absolute Auto 5.4 x10*3/uL (2.0-8.3); Neutrophils Percent Auto 36.8 % (45-73); Platelet Count 300 X10*3/uL (160-400); Red Blood Count 4.58 X10*6/uL (4.20-5.50); Red Cell Distribution Width 12.8 % (11.0-16.0); SCAN SMEAR FLAG 1; White Blood Count 14.6 X10*3/uL (4.8-10.8)
[2021-09-28 04:10] LABS: MANUAL DIFF FLAG SCAN
[2021-09-28 04:24] LABS: Alanine Aminotransferase 25 U/L (0-31); Albumin Level 4.4 g/dL (3.5-5.0); Alkaline Phosphatase 109 U/L (39-117); Anion Gap 17 (12-20); Aspartate Amino Transferase 20 U/L (5-31); Bilirubin Total 0.5 mg/dL (0.0-1.0); Blood Urea Nitrogen 17 mg/dL (9-16); Calcium 9.7 mg/dL (8.4-10.2); Carbon Dioxide 25 mmol/L (22-29); Chloride 101 mmol/L (96-108); Creatinine Clr Calc Pharmacy 84.4; Estimated Glomerular Filt Rate > 60; Glucose Random 123 mg/dL (60-115); Lipase 25 U/L (8-78); Potassium 3.6 mmol/L (3.3-5.1); Sodium 139 mmol/L (135-145); Total Protein 7.7 g/dL (6.5-8.0)
[2021-09-28 04:28] LABS: Lymphocytes Absolute Auto 7.8 X10*3/uL (1.2-4.9); SLIDE REVIEW VERIFIED
[2021-09-28 04:32] LABS: Troponin-I High Sensitivity 3.7 ng/L (<3.5-17.0)
[2021-09-28 07:18] VITALS: BP 155/65; PULSE 59; RESP 18; TEMP 36.3; O2SAT 98
--- NOTE | 2021-09-28 11:29 | ED_ITS ---
HPI - General Adult General Chief complaint: Nausea/Vomiting/Diarrhea Stated complaint: stomach pain & vomiting Time Seen by Provider: 09/28/21 11:28 History of Present Illness HPI narrative: Patient complains of nausea vomiting and right upper abdominal pain starting this morning, pain continues and is rated severe, no diarrhea no dysuria no blood in the vomitus Related Data Previous Rx's Medication Instructions Recorded hydrocodone 5 mg-acetaminophen 325 1 tab PO Q6H PRN pain #14 tabs 12/04/20 mg tablet ondansetron 4 mg disintegrating 4 mg PO Q8H PRN nausea and 12/05/19 tablet vomiting #20 tabs naproxen 500 mg tablet (Naprosyn) 500 mg PO BID #20 tabs 12/07/19 pantoprazole 40 mg tablet,delayed 40 mg PO DAILY #20 tabs 12/07/19 release (Protonix) prednisone 20 mg tablet 60 mg PO DAILY 5 days #15 tabs 10/17/20 famotidine 20 mg tablet 20 mg PO BEDTIME #10 tabs 10/24/20 omeprazole 40 mg capsule,delayed 40 mg PO DAILY #30 caps 04/20/21 release sucralfate 1 gram tablet 1 g PO TID #90 tabs 04/20/21 Allergies Allergy/AdvReac Type Severity Reaction Status Date / Time No Known Allergies Allergy Verified 09/28/21 03:54 [No Known Allergies*] Review of Systems Review of Systems: Positive for right upper quadrant abdominal pain and vomiting Negatives are no fever no chills no dizziness or weakness no fainting no feeling faint no neck pain no chest pain no diarrhea no dysuria no frequency no blood in vomit or stool, denies any skin rash Yes all other systems are reviewed and are negative PMFSH Past Medical History Source: nursing notes reviewed Medical History (Updated 09/28/21 @ 16:54 by Jose Martin MD) Acute cholecystitis Bronchitis Chronic back pain Surgical History Tubal ligation status Family History Family History Mother No problems noted. Father History of throat cancer Social History Social History Alcohol intake: never Advance Directives: No Advance Directives Information Provided: Yes Physical Exam ED Vital Signs: Vital Signs - 24 hr 09/28/21 03:51 09/28/21 07:18 09/28/21 15:20 Temperature 97.3 F 97.4 F Pulse Rate 63 59 63 Respiratory Rate 20 18 16 Blood Pressure 154/69 H 155/65 H 120/47 L Pulse Oximetry 99 98 97 Oxygen Delivery Method Room Air Room Air Room Air BMI result Body Mass Index 32.9 General appearance uncomfortable due to right upper quadrant pain, but alert and oriented and responds appropriately The eyes are anicteric no pallor The pharynx mucous membranes are moist neck is supple chest is clear the heart no murmur the abdomen had guarding and tenderness in the right upper quadrant Rest of abdominal exam is benign Extremities full range of motion x4 Skin no rash Neuro no focal deficits Course Course Course Narrative: Labs were checked including LFTs without any significant abnormality Ultrasound was positive forsitive Hwang sign, stones in the gallbladder neck, stones in the gallbladder and a mildly dilated common bile duct Case was discussed via text with Dr. Herring surgeon who came to see the patient and admitted the patient for surgery tomorrow Medical Decision Making Lab Data Lab results reviewed: Yes I reviewed the patient's lab results. Result diagrams: 09/28/21 03:59 09/28/21 03:59 Labs: Lab Results 09/28/21 09/28/21 09/28/21 Range/Units 03:59 03:59 03:59 WBC 14.6 H (4.8-10.8) X10*3/uL RBC 4.58 (4.20-5.50) X10*6/uL Hgb 13.4 (12.0-16.0) g/dl Hct 41.5 (37.0-47.0) % MCV 90.6 (80.0-98.0) fL MCH 29.3 (27.0-33.0) pg MCHC 32.3 (31.0-35.0) g/dl RDW 12.8 (11.0-16.0) % Plt Count 300 (160-400) X10*3/uL MPV 9.6 (9.4-12.3) fL Immature Gran % (Auto) 0.3 (0.0-0.4) % Neut % (Auto) 36.8 L (45-73) % Lymph % (Auto) 53.3 H (20-40) % [place] % (Auto) 6.4 (2-11) % Eos % (Auto) 2.9 (0-4) % Baso % (Auto) 0.3 (0-2) % Lymph # (Auto) 7.8 H (1.2-4.9) X10*3/uL [place] # (Auto) 0.9 (0.1-1.2) X10*3/uL Eos # (Auto) 0.4 (0.0-0.4) X10*3/uL Baso # (Auto) 0.1 (0.0-0.2) X10*3/uL Abs Immat Gran (auto) 0.04 H (0.00-0.03) X10*3/uL Absolute Neuts (auto) 5.4 (2.0-8.3) x10*3/uL Absolute Nucleated RBC 0.000 (0.0-0.012) X10*3/uL Nucleated RBC % (auto) 0.0 (0.0-0.2) /100WBC Smear Tech's Comments VERIFIED Smear Path Review SEE NOTE Sodium 139 (135-145) mmol/L Potassium 3.6 (3.3-5.1) mmol/L Chloride 101 (96-108) mmol/L Carbon Dioxide 25 (22-29) mmol/L Anion Gap 17 (12-20) BUN 17 H (9-16) mg/dL Creatinine 0.78 (0.5-1.4) mg/dL Estim Creat Clear Calc 84.4 Estimated GFR > 60 Random Glucose 123 H (60-115) mg/dL Calcium 9.7 (8.4-10.2) mg/dL Total Bilirubin 0.5 (0.0-1.0) mg/dL AST 20 (5-31) U/L ALT 25 (0-31) U/L Alkaline Phosphatase 109 (39-117) U/L Troponin I High Sens 3.7 (<3.5-17.0) ng/L Total Protein 7.7 (6.5-8.0) g/dL Albumin 4.4 (3.5-5.0) g/dL Lipase 25 (8-78) U/L Urine Color Urine Appearance Urine pH (5.0-8.0) Ur Specific [place] (1.005-1.025) Urine Protein (NEG-TRACE) MG/DL Urine Glucose (UA) (NEG) MG/DL Urine Ketones (NEG) MG/DL Urine Blood (NEG) Urine Nitrite (NEG) Ur Leukocyte Esterase (NEG) Urine RBC (0) /HPF Urine WBC (0-4) /HPF Ur Squamous Epith Cells /LPF Urine Bacteria /LPF Urine Mucus /LPF Urine Test (NEGATIVE) 09/28/21 09/28/21 Range/Units 11:53 11:53 WBC (4.8-10.8) X10*3/uL RBC (4.20-5.50) X10*6/uL Hgb (12.0-16.0) g/dl Hct (37.0-47.0) % MCV (80.0-98.0) fL MCH (27.0-33.0) pg MCHC (31.0-35.0) g/dl RDW (11.0-16.0) % Plt Count (160-400) X10*3/uL MPV (9.4-12.3) fL Immature Gran % (Auto) (0.0-0.4) % Neut % (Auto) (45-73) % Lymph % (Auto) (20-40) % [place] % (Auto) (2-11) % Eos % (Auto) (0-4) % Baso % (Auto) (0-2) % Lymph # (Auto) (1.2-4.9) X10*3/uL [place] # (Auto) (0.1-1.2) X10*3/uL Eos # (Auto) (0.0-0.4) X10*3/uL Baso # (Auto) (0.0-0.2) X10*3/uL Abs Immat Gran (auto) (0.00-0.03) X10*3/uL Absolute Neuts (auto) (2.0-8.3) x10*3/uL Absolute Nucleated RBC (0.0-0.012) X10*3/uL Nucleated RBC % (auto) (0.0-0.2) /100WBC Smear Tech's Comments Smear Path Review Sodium (135-145) mmol/L Potassium (3.3-5.1) mmol/L Chloride (96-108) mmol/L Carbon Dioxide (22-29) mmol/L Anion Gap (12-20) BUN (9-16) mg/dL Creatinine (0.5-1.4) mg/dL Estim Creat Clear Calc Estimated GFR Random Glucose (60-115) mg/dL Calcium (8.4-10.2) mg/dL Total Bilirubin (0.0-1.0) mg/dL AST (5-31) U/L ALT (0-31) U/L Alkaline Phosphatase (39-117) U/L Troponin I High Sens (<3.5-17.0) ng/L Total Protein (6.5-8.0) g/dL Albumin (3.5-5.0) g/dL Lipase (8-78) U/L Urine Color YELLOW Urine Appearance CLEAR Urine pH 6.0 (5.0-8.0) Ur Specific [place] 1.025 (1.005-1.025) Urine Protein NEG (NEG-TRACE) MG/DL Urine Glucose (UA) NEG (NEG) MG/DL Urine Ketones 5 (NEG) MG/DL Urine Blood 1+ H (NEG) Urine Nitrite NEG (NEG) Ur Leukocyte Esterase NEG (NEG) Urine RBC 0-2 (0) /HPF Urine WBC 0 (0-4) /HPF Ur Squamous Epith Cells 1+ /LPF Urine Bacteria TRACE /LPF Urine Mucus 1+ /LPF Urine Test NEGATIVE (NEGATIVE) Discharge Plan Discharge Patient Disposition: Admitted As Inpatient Prescriptions: No Action ondansetron 4 mg tablet,disintegrating 4 mg PO Q8H PRN (Reason: nausea and vomiting) Qty: 20 0RF hydrocodone-acetaminophen 5-325 mg tablet 1 tab PO Q6H PRN (Reason: pain) Qty: 14 0RF prednisone 20 mg tablet 60 mg PO DAILY 5 Days Qty: 15 0RF famotidine 20 mg tablet 20 mg PO BEDTIME Qty: 10 0RF pantoprazole [Protonix] 40 mg tablet,delayed release (DR/EC) 40 mg PO DAILY Qty: 20 0RF naproxen [Naprosyn] 500 mg tablet 500 mg PO BID Qty: 20 0RF omeprazole 40 mg capsule,delayed release(DR/EC) 40 mg PO DAILY Qty: 30 0RF sucralfate 1 gram tablet 1 g PO TID Qty: 90 0RF
[2021-09-28] MEDS: 0.9 % Sodium Chloride 1,000 ML 999 ML IVCONT (11:42)
[2021-09-28] MEDS: Ketorolac Tromethamine 15 MG/ML VIAL IVPUSH (11:56)
[2021-09-28] MEDS: ondansetron HCL 4 MG/2 ML VIAL IVPUSH (11:56)
[2021-09-28] MEDS: Morphine Sulfate 10 MG/ML CARTRIDGE 6 MG IVPUSH (11:57)
[2021-09-28 12:07] LABS: UPreg QC Valid YES; Urine Pregnancy NEGATIVE (NEGATIVE)
[2021-09-28 12:40] LABS: Appearance Urine CLEAR; Color Urine YELLOW; Glucose Urine UA NEG (NEG); Leukocyte Esterase Urine NEG (NEG); Nitrite Urine NEG (NEG); Specific Gravity - Urine 1.025 (1.005-1.025); UACC Culture Trigger NO; Urine Blood 1+ (NEG); Urine Ketones 5 MG/DL (NEG); Urine Protein NEG (NEG-TRACE)
[2021-09-28 12:49] LABS: Bacteria Urine TRACE /LPF; Mucus Urine 1+ /LPF
[2021-09-28 12:50] LABS: RBC Urine 0-2 /HPF (0); Squamous Epithelial Cell Urine 1+ /LPF; WBC Urine 0 /HPF (0-4)
[2021-09-28] MEDS: iohexoL 350 MG/ML 100 ML INFUS..BTL IV (14:25)
[2021-09-28] MEDS: Morphine Sulfate 4 MG/ML CARTRIDGE IVPUSH (15:17)
[2021-09-28 15:20] VITALS: BP 120/47; PULSE 63; RESP 16; O2SAT 97
--- NOTE | 2021-09-28 16:49 | PM.HPGS ---
History of Present Illness History of Present Illness Date of Service: 09/30/21 Chief complaint: acute cholecystitis Narrative: Madeline Saldivar is a 51 year old female here in the ED for abdominal pain. She describes epigastric and right upper quadrant pain starting around 10pm last night. This was mild in the begininng but seemed to have worsened in intensity. She had episodes of vomitting starting around 2 a.m. so she came to the ED thereafter. She says her pain currently is much improved. She does have a hx of gallstones. She had an US in 2019 showing gallstones with question of GB wall thickening then. She says she has occasional episodes of 'indigestion which she describes as epigastric pain with meals. Review of Systems Constitutional: Constitutional: Denies chills and Denies fever(s) Cardiovascular: Cardiovascular: Denies chest pain, Denies dyspnea and Denies dyspnea on exertion Respiratory: Respiratory: Denies cough, Denies dyspnea and Denies dyspnea on exertion Gastrointestinal: Gastrointestinal: Denies hematochezia and Denies change in bowel habits Genitourinary: Genitourinary: Denies hematuria Musculoskeletal: Musculoskeletal: Denies back pain and Denies limited range of motion Neurologic: Denies focal weakness and Denies convulsions Psychiatric: Psychiatric: Denies depression and Denies mood swings PMFSH Past Medical History Medical History (Updated 09/28/21 @ 16:54 by Jose Martin MD) Acute cholecystitis Bronchitis Chronic back pain Family History Family History Mother No problems noted. Father History of throat cancer Surgical History Surgical History Tubal ligation status Social History Social History Household Members: Family Housing: House Do you presently have visiting nurse or other home services: No Alcohol intake: never Patient Tobacco Use Status: Never used Tobacco Use of substances other than those prescribed or required for medical reasons: No Currently Displaying Signs/Symptoms of Drug Intoxication Withdrawal: No Have you been hit, kicked, punched, or otherwise hurt by someone within the past year? If so, by whom?: No Do you feel safe in your current relationship?: No Is there a partner from a previous relationship who is making you feel unsafe now?: No Are you made to feel afraid or neglected: No Are you DNR?: No Advance Directives: No Advance Directives Information Provided: Yes Do you have thoughts of harming others: None Do you have a plan to hurt others: No Plan Recently lost weight without trying: No Eating poorly because of decreased appetite: No Nutrition Risks: No Nutritional Risk Patient : No : No Poor oral hygiene: No service: No Current occupational status: disabled Meds Allergies Allergy/AdvReac Type Severity Reaction Status Date / Time No Known Allergies Allergy Verified 09/28/21 03:54 [No Known Allergies*] Physical Exam Vital Signs: Vital Signs: Last Vital Signs Temp 97.4 F 09/28/21 07:18 Pulse 63 09/28/21 15:20 Resp 16 09/28/21 15:20 BP 120/47 L 09/28/21 15:20 Pulse Ox 97 09/28/21 15:20 O2 Del Method 09/28/21 15:20 BMI result Body Mass Index 32.9 Const: General: comfortable and no acute distress Orientation/consciousness: patient oriented x3 Neck: Neck: Yes no lymphadenopathy Resp: Auscultation: clear to auscultation bilaterally Cardio: Rhythm: regular rhythm GI: Other: minimal tenderness, right upper quadrant Palpation (GI): Soft to palpation, nontender and no guarding Neuro: General: patient oriented x3 Results Results Labs: Short CBC 09/28/21 Range/Units 03:59 WBC 14.6 H (4.8-10.8) X10*3/uL Hgb 13.4 (12.0-16.0) g/dl Hct 41.5 (37.0-47.0) % Plt Count 300 (160-400) X10*3/uL BMP 09/28/21 03:59 Sodium 139 Potassium 3.6 Chloride 101 Carbon Dioxide 25 BUN 17 H Creatinine 0.78 Calcium 9.7 Liver Function 09/28/21 Range/Units 03:59 Total Bilirubin 0.5 (0.0-1.0) mg/dL AST 20 (5-31) U/L ALT 25 (0-31) U/L Alkaline Phosphatase 109 (39-117) U/L Albumin 4.4 (3.5-5.0) g/dL Urine 09/28/21 09/28/21 Range/Units 11:53 11:53 Urine Color YELLOW Urine Appearance CLEAR Urine pH 6.0 (5.0-8.0) Ur Specific [place] 1.025 (1.005-1.025) Urine Protein NEG (NEG-TRACE) MG/DL Urine Glucose (UA) NEG (NEG) MG/DL Urine Test NEGATIVE (NEGATIVE) Additional studies: Laboratory Results WBC 14.6 X10*3/uL (4.8-10.8) H 09/28/21 03:59 RBC 4.58 X10*6/uL (4.20-5.50) 09/28/21 03:59 Hgb 13.4 g/dl (12.0-16.0) 09/28/21 03:59 Hct 41.5 % (37.0-47.0) 09/28/21 03:59 MCV 90.6 fL (80.0-98.0) 09/28/21 03:59 MCH 29.3 pg (27.0-33.0) 09/28/21 03:59 MCHC 32.3 g/dl (31.0-35.0) 09/28/21 03:59 RDW 12.8 % (11.0-16.0) 09/28/21 03:59 Plt Count 300 X10*3/uL (160-400) 09/28/21 03:59 MPV 9.6 fL (9.4-12.3) 09/28/21 03:59 Immature Gran % (Auto) 0.3 % (0.0-0.4) 09/28/21 03:59 Neut % (Auto) 36.8 % (45-73) L 09/28/21 03:59 Lymph % (Auto) 53.3 % (20-40) H 09/28/21 03:59 [place] % (Auto) 6.4 % (2-11) 09/28/21 03:59 Eos % (Auto) 2.9 % (0-4) 09/28/21 03:59 Baso % (Auto) 0.3 % (0-2) 09/28/21 03:59 Lymph # (Auto) 7.8 X10*3/uL (1.2-4.9) H 09/28/21 03:59 [place] # (Auto) 0.9 X10*3/uL (0.1-1.2) 09/28/21 03:59 Eos # (Auto) 0.4 X10*3/uL (0.0-0.4) 09/28/21 03:59 Baso # (Auto) 0.1 X10*3/uL (0.0-0.2) 09/28/21 03:59 Abs Immat Gran (auto) 0.04 X10*3/uL (0.00-0.03) H 09/28/21 03:59 Absolute Neuts (auto) 5.4 x10*3/uL (2.0-8.3) 09/28/21 03:59 Absolute Nucleated RBC 0.000 X10*3/uL (0.0-0.012) 09/28/21 03:59 Nucleated RBC % (auto) 0.0 /100WBC (0.0-0.2) 09/28/21 03:59 Smear Tech's Comments VERIFIED 09/28/21 03:59 Smear Path Review SEE NOTE 09/28/21 03:59 Sodium 139 mmol/L (135-145) 09/28/21 03:59 Potassium 3.6 mmol/L (3.3-5.1) 09/28/21 03:59 Chloride 101 mmol/L (96-108) 09/28/21 03:59 Carbon Dioxide 25 mmol/L (22-29) 09/28/21 03:59 Anion Gap 17 (12-20) 09/28/21 03:59 BUN 17 mg/dL (9-16) H 09/28/21 03:59 Creatinine 0.78 mg/dL (0.5-1.4) 09/28/21 03:59 Estim Creat Clear Calc 84.4 09/28/21 03:59 Estimated GFR > 60 09/28/21 03:59 Random Glucose 123 mg/dL (60-115) H 09/28/21 03:59 Calcium 9.7 mg/dL (8.4-10.2) 09/28/21 03:59 Total Bilirubin 0.5 mg/dL (0.0-1.0) 09/28/21 03:59 AST 20 U/L (5-31) 09/28/21 03:59 ALT 25 U/L (0-31) 09/28/21 03:59 Alkaline Phosphatase 109 U/L (39-117) 09/28/21 03:59 Troponin I High Sens 3.7 ng/L (<3.5-17.0) 09/28/21 03:59 Total Protein 7.7 g/dL (6.5-8.0) 09/28/21 03:59 Albumin 4.4 g/dL (3.5-5.0) 09/28/21 03:59 Lipase 25 U/L (8-78) 09/28/21 03:59 Urine Color YELLOW 09/28/21 11:53 Urine Appearance CLEAR 09/28/21 11:53 Urine pH 6.0 (5.0-8.0) 09/28/21 11:53 Ur Specific [place] 1.025 (1.005-1.025) 09/28/21 11:53 Urine Protein NEG MG/DL (NEG-TRACE) 09/28/21 11:53 Urine Glucose (UA) NEG MG/DL (NEG) 09/28/21 11:53 Urine Ketones 5 MG/DL (NEG) 09/28/21 11:53 Urine Blood 1+ (NEG) H 09/28/21 11:53 Urine Nitrite NEG (NEG) 09/28/21 11:53 Ur Leukocyte Esterase NEG (NEG) 09/28/21 11:53 Urine RBC 0-2 /HPF (0) 09/28/21 11:53 Urine WBC 0 /HPF (0-4) 09/28/21 11:53 Ur Squamous Epith Cells 1+ /LPF 09/28/21 11:53 Urine Bacteria TRACE /LPF 09/28/21 11:53 Urine Mucus 1+ /LPF 09/28/21 11:53 Urine Test NEGATIVE (NEGATIVE) 09/28/21 11:53 Impressions Abdomen Ultrasound 09/28/21 12:15 IMPRESSION: Gallbladder with calculi and an impacted stone at the gallbladder neck with a positive Hwang's sign with associated mildly dilated common bile duct. Findings are suggestive of cholecystitis. In 2019, the patient had similar scenario, went on to have a HIDA scan which showed a patent cystic duct but with poor gallbladder emptying and low ejection fraction thought to represent chronic cholecystitis Abdomen/Pelvis CT 09/28/21 14:24 IMPRESSION: 1. Mild thickening of gallbladder wall. This could be seen with chronic or acute cholecystitis. No bile duct dilatation. 2. Scattered diverticula of the colon. No acute change of the bowel. Fleischner guidelines were followed. Assessment and Plan (1) Acute cholecystitis: Status: Acute She has some mild RUQ tenderness now but her imaging studies including an US and CT scan suggest some mild acute cholecysititis with gallstones. She has some leukocytosis. I therefore explained to her the option of proceeding with choelcystectomy. I explained the technique of laparoscopic cholecystectomy and possible open cholecystectomy. I reviewed with her the risks including but not limited to bleeding, infections, injury to bowel, liver, bile ducts, retained stones, bile leak, as well as the benefits and alternatives. She understands and wants to proceed. She will therefore be admitted and we will plan on proceeding with laparoscopic cholecystectomy possible open cholecystectomy tomorrow. Quality Stroke Does the patient have a stroke diagnosis?: No VTE Prior VTE?: No VTE Risk Level:: Medical - moderate - high VTE Device Contraindication: N/A - Device Ordered VTE Drug Contraindication: N/A - Med Ordered Procedures Date of Service Date of Service: 09/28/21
--- NOTE | 2021-09-28 18:59 | PHA.MEDREC ---
Pharmacy Consult ? Medication Reconciliation Pharmacy has completed the medication reconciliation.
[2021-09-28] MEDS: Piperacillin Sodium/Tazobactam 3.375 GM in 0.9 % Sodium Chloride 50 ML IV ×2 (19:19→23:48)
[2021-09-28 19:20] LABS: COVID-19 Test Negative (Negative); IDNOW Serial# 16C4AD1C
[2021-09-28] MEDS: Heparin Sodium,Porcine 5,000 UNIT/ML VIAL 5000 UNIT SUBCUT (19:20)
[2021-09-28] MEDS: Lactated Ringers 1,000 ML 100 ML IVCONT (20:06)
--- NOTE | 2021-09-28 20:22 | PC.NURSE ---
report called to S3 ELIE Nunez pt going to bed 385-1. pt rec 1st dose of zosyn, LR running VSS
[2021-09-28 21:07] VITALS: BMI 33.5
[2021-09-28] MEDS: Morphine Sulfate 4 MG/ML CARTRIDGE 3 MG IVPUSH (21:22)
[2021-09-28 21:53] VITALS: BP 128/61; PULSE 61; RESP 16; TEMP 35.9; O2SAT 97
[2021-09-29] VITALS (12 sets, daily range): BP systolic 90–128; BP diastolic 43–62; PULSE 52–88; RESP 14–20; TEMP 36.1–37.3; O2SAT 90–98; BMI 32.3
[2021-09-29] MEDS: Lactated Ringers 1,000 ML 100 ML IVCONT (05:29)
[2021-09-29] MEDS: Heparin Sodium,Porcine 5,000 UNIT/ML VIAL 5000 UNIT SUBCUT ×2 (05:29→18:28)
[2021-09-29] MEDS: Piperacillin Sodium/Tazobactam 3.375 GM in 0.9 % Sodium Chloride 50 ML IV ×3 (05:29→18:27)
[2021-09-29] MEDS: ondansetron HCL 4 MG/2 ML VIAL IVPUSH (08:04)
[2021-09-29] MEDS: Morphine Sulfate 4 MG/ML CARTRIDGE 3 MG IVPUSH ×2 (08:04→14:51)
[2021-09-29] MEDS: 0.9 % Sodium Chloride Flush 3 ML SYRINGE IVFLUSH (08:09)
[2021-09-29 08:22] LABS: Hematocrit 38.4 % (37.0-47.0); Hemoglobin 12.4 g/dl (12.0-16.0); Mean Corpuscular HGB Conc 32.3 g/dl (31.0-35.0); Mean Corpuscular Hemoglobin 29.5 pg (27.0-33.0); Mean Corpuscular Volume 91.4 fL (80.0-98.0); Platelet Count 266 X10*3/uL (160-400); Red Cell Distribution Width 13.2 % (11.0-16.0); White Blood Count 9.3 X10*3/uL (4.8-10.8)
--- NOTE | 2021-09-29 08:25 | P.CONAN_ITS ---
[facility] Active Problems Active Problems: All Active Problems (Updated 09/28/21 @ 16:54 by Jose Martin MD) Acute cholecystitis (Acute) Abdominal wall pain in epigastric region (Acute) Epigastric pain (Acute) Abdominal pain (Acute) Past Medical History Medical History (Updated 09/28/21 @ 16:54 by Jose Martin MD) Acute cholecystitis Bronchitis Chronic back pain Functional capacity: independent ambulation Patient : No Family History Family History Mother No problems noted. Father History of throat cancer Family history of problems with anesthesia: No Surgical History Surgical History Tubal ligation status History of Problems with Anesthesia: No Social History Social History Household Members: Family Housing: House Do you presently have visiting nurse or other home services: No Alcohol intake: never Patient Tobacco Use Status: Never used Tobacco Use of substances other than those prescribed or required for medical reasons: No Currently Displaying Signs/Symptoms of Drug Intoxication Withdrawal: No Have you been hit, kicked, punched, or otherwise hurt by someone within the past year? If so, by whom?: No Do you feel safe in your current relationship?: No Is there a partner from a previous relationship who is making you feel unsafe now?: No Are you made to feel afraid or neglected: No Advance Directives: No Advance Directives Information Provided: Yes Do you have thoughts of harming others: None Do you have a plan to hurt others: No Plan Recently lost weight without trying: No Eating poorly because of decreased appetite: No Nutrition Risks: No Nutritional Risk Patient : No : No Poor oral hygiene: No service: No Current occupational status: disabled Meds Allergies Allergy/AdvReac Type Severity Reaction Status Date / Time No Known Allergies Allergy Verified 09/28/21 03:54 [No Known Allergies*] Active Medications: Current Medications Heparin Sodium (Porcine) (Heparin Sodium,Porcine 5,000 Unit/Ml Vial) 5,000 unit SUBCUT Q12H EPIFANIO Last Admin: 09/29/21 05:29 Dose: 5,000 unit Lactated Ringer's (Lr) 1,000 mls @ 100 mls/hr IVCONT .Q10H [facility] Last Admin: 09/29/21 05:29 Dose: 100 mls/hr Piperacillin Sod/Tazobactam (Sod 3.375 gm/ Sodium Chloride) 50 mls @ 100 mls/hr IV Q6H [facility] Last Infusion: 09/29/21 06:09 Dose: Infused Morphine Sulfate (Morphine Sulfate 4 Mg/Ml Cartridge) 3 mg IVPUSH Q3H PRN; Protocol PRN Reason: Pain, Severe (Pain Scale 7-10) Last Admin: 09/29/21 08:04 Dose: 3 mg Ondansetron HCl (Ondansetron Hcl 4 Mg/2 Ml Vial) 4 mg IVPUSH Q8H PRN PRN Reason: Nausea and Vomiting Last Admin: 09/29/21 08:04 Dose: 4 mg Oxycodone HCl (Oxycodone Hcl Immed Release 5 Mg Tablet) 5 mg PO Q4H PRN PRN Reason: Pain, Moderate (Pain Scale 4-6 Pharmacy Consult (Consult Rx Perform Med Rec) 1 each MISCELLANE ONCE PRN PRN Reason: Consult order Sodium Chloride (0.9 % Sodium Chloride Flush 3 Ml Syringe) 3 ml IVFLUSH QSHIFT [facility] Last Admin: 09/29/21 08:09 Dose: 3 ml Home Medications Medication Instructions Recorded Confirmed Last Taken Type No Known Home Meds 09/28/21 09/28/21 Unknown History Exam Exam Date and Time: September 29, 2021 0825 Height,Weight and Vital Signs: Height 5 ft 2 in Weight 83 kg Last Vital Signs Temp 99.1 F 09/29/21 08:00 Pulse 67 09/29/21 08:00 Resp 15 09/29/21 08:00 BP 128/62 09/29/21 08:00 Pulse Ox 93 09/29/21 08:00 O2 Del Method 09/29/21 08:00 Pertinent Lab Results Pertinent Lab Results: Laboratory Tests 09/28/21 09/28/21 09/28/21 03:59 03:59 03:59 WBC 14.6 H RBC 4.58 Hgb 13.4 Hct 41.5 MCV 90.6 MCH 29.3 MCHC 32.3 RDW 12.8 Plt Count 300 MPV 9.6 Immature Gran % (Auto) 0.3 Neut % (Auto) 36.8 L Lymph % (Auto) 53.3 H [place] % (Auto) 6.4 Eos % (Auto) 2.9 Baso % (Auto) 0.3 Lymph # (Auto) 7.8 H [place] # (Auto) 0.9 Eos # (Auto) 0.4 Baso # (Auto) 0.1 Abs Immat Gran (auto) 0.04 H Absolute Neuts (auto) 5.4 Absolute Nucleated RBC 0.000 Nucleated RBC % (auto) 0.0 Smear Tech's Comments VERIFIED Smear Path Review SEE NOTE Sodium 139 Potassium 3.6 Chloride 101 Carbon Dioxide 25 Anion Gap 17 BUN 17 H Creatinine 0.78 Estim Creat Clear Calc 84.4 Estimated GFR > 60 Random Glucose 123 H Calcium 9.7 Total Bilirubin 0.5 AST 20 ALT 25 Alkaline Phosphatase 109 Troponin I High Sens 3.7 Total Protein 7.7 Albumin 4.4 Lipase 25 Urine Color Urine Appearance Urine pH Ur Specific [place] Urine Protein Urine Glucose (UA) Urine Ketones Urine Blood Urine Nitrite Ur Leukocyte Esterase Urine RBC Urine WBC Ur Squamous Epith Cells Urine Bacteria Urine Mucus Urine Test COVID-19 (ADELE) COVID-Physiq 09/28/21 09/28/21 09/28/21 11:53 11:53 18:53 WBC RBC Hgb Hct MCV MCH MCHC RDW Plt Count MPV Immature Gran % (Auto) Neut % (Auto) Lymph % (Auto) [place] % (Auto) Eos % (Auto) Baso % (Auto) Lymph # (Auto) [place] # (Auto) Eos # (Auto) Baso # (Auto) Abs Immat Gran (auto) Absolute Neuts (auto) Absolute Nucleated RBC Nucleated RBC % (auto) Smear Tech's Comments Smear Path Review Sodium Potassium Chloride Carbon Dioxide Anion Gap BUN Creatinine Estim Creat Clear Calc Estimated GFR Random Glucose Calcium Total Bilirubin AST ALT Alkaline Phosphatase Troponin I High Sens Total Protein Albumin Lipase Urine Color YELLOW Urine Appearance CLEAR Urine pH 6.0 Ur Specific [place] 1.025 Urine Protein NEG Urine Glucose (UA) NEG Urine Ketones 5 Urine Blood 1+ H Urine Nitrite NEG Ur Leukocyte Esterase NEG Urine RBC 0-2 Urine WBC 0 Ur Squamous Epith Cells 1+ Urine Bacteria TRACE Urine Mucus 1+ Urine Test NEGATIVE COVID-19 (ADELE) Negative COVID-19 Intradiem See Note 09/29/21 07:38 WBC 9.3 RBC 4.20 Hgb 12.4 Hct 38.4 MCV 91.4 MCH 29.5 MCHC 32.3 RDW 13.2 Plt Count 266 MPV 10.0 Immature Gran % (Auto) Neut % (Auto) Lymph % (Auto) [place] % (Auto) Eos % (Auto) Baso % (Auto) Lymph # (Auto) [place] # (Auto) Eos # (Auto) Baso # (Auto) Abs Immat Gran (auto) Absolute Neuts (auto) Absolute Nucleated RBC 0.000 Nucleated RBC % (auto) 0.0 Smear Tech's Comments Smear Path Review Sodium Potassium Chloride Carbon Dioxide Anion Gap BUN Creatinine Estim Creat Clear Calc Estimated GFR Random Glucose Calcium Total Bilirubin AST ALT Alkaline Phosphatase Troponin I High Sens Total Protein Albumin Lipase Urine Color Urine Appearance Urine pH Ur Specific [place] Urine Protein Urine Glucose (UA) Urine Ketones Urine Blood Urine Nitrite Ur Leukocyte Esterase Urine RBC Urine WBC Ur Squamous Epith Cells Urine Bacteria Urine Mucus Urine Test COVID-19 (ADELE) COVID-19 Clin Com Airway Mallampati Class: II TM Dist: >3cm Neck ROM: Full Heart: rRRR Lungs: CTA Assessment and Plan Final Anesthetic Review Family History of Problems with Anesthesia: No History of Problems with Anesthesia: No Final Preanesthetic Review: No Changes in Pt Med Stat, Meds/Allgs Chart Reviewed, Consent Obtained/Reviewed, Anes Risks/Benef Reviewed and DNR Form (If Appl.) Patient Risk: Intermediate Assessment/Block/Sedation in SS: Assess/Block/Sedation-SS Anesthetic Plan Anesthetic Plan: GA Disposition: Standard PACU
--- NOTE | 2021-09-29 08:33 | MHC.CM.PN ---
CM met with Patient and her Son at bedside. Patient lives in a duplex with her Son and she required no DME no services [employer]. Home/no services is the goal and CM has initiated and will follow for dc planning. Patient is not established with her new PCP at [facility] and she has received NO Covid vax.
[2021-09-29 08:47] LABS: Alanine Aminotransferase 22 U/L (0-31); Albumin Level 3.5 g/dL (3.5-5.0); Alkaline Phosphatase 108 U/L (39-117); Anion Gap 14 (12-20); Aspartate Amino Transferase 23 U/L (5-31); Bilirubin Direct 0.3 mg/dL (0.0-0.5); Bilirubin Total 0.8 mg/dL (0.0-1.0); Blood Urea Nitrogen 8 mg/dL (9-16); Carbon Dioxide 25 mmol/L (22-29); Chloride 104 mmol/L (96-108); Creatinine Clr Calc Pharmacy 89.8; Estimated Glomerular Filt Rate > 60; Glucose Random 113 mg/dL (60-115); Potassium 4.1 mmol/L (3.3-5.1); Sodium 139 mmol/L (135-145)
--- NOTE | 2021-09-29 10:31 | P.OP_ITS ---
Operative Note Operative Note Date of Service: 09/29/21 Narrative: Preop diagnosis: Acute calculous cholecystitis Postop diagnosis: Acute calculous cholecystitis Procedure: Laparoscopic cholecystectomy Surgeon: Jose Martin MD employee relations assistant: SHANNAN Ocampo The patient is a 51 year female who was admitted last night because of epigastric and right upper quadrant pain with imaging study showing acute calculous cholecystitis. She wanted to proceed with cholecystectomy. She understood the technique of laparoscopic cholecystectomy and was aware of the risks, benefits, and alternatives . She was brought to the operating room. She was placed supine under general a nesthesia via endotracheal tube. The abdomen is prepped and draped in the usual sterile fashion. A surgical time-out was done. The patient was on scheduled Zosyn IV I made a short supraumbilical incision using a blade 15. This was carried down through the full-thickness of the skin and subcutaneous fat down to the fascia. The fascia was incised. The peritoneum was entered. Through this incision a Cesar port was introduced. Pneumoperitoneum was introduced to a pressure of 15 mm hg. From here on the rest of the procedure was done under vision with the laparoscopic With laparoscopic visualization using a 10 mm 0 degree scope, proceeded to place a 5/12 mm port in the epigastric area below the subcostal margin. 2 5 mm ports introduced a small incisions below the subcostal margin along the anterior axillary line and the midclavicular line. Graspers were placed through these working ports. The patient was placed in head up and [id number] position. Examination of the gallbladder revealed that this was markedly distended, inflamed, very erythematous and I therefore had to decompress this using a laparoscopic aspirating needle. Once this was decompressed, I applied graspers in the fundus and this was used to retract the gallbladder cephalad. Another grasper was applied at the pouch of the gallbladder and this was used to retract the gallbladder laterally. At this point therefore the gallbladder was being retracted and cephalad lateral fashion to put the area of the cystic duct on stretch. There was note of a lot of inflamed indurated fibroid lower tissue s urrounding the neck so we had to carefully dissect this with the use of the [place] dissector. With this was done until I was able to clearly see the cystic duct. I would further define the cystic duct to confirm its confluence with the neck of the gallbladder. A critical view of the hepatocystic triangle was also achieved Once this was achieved, proceeded to apply clips on the cystic duct with 2 clips applied distally. The cystic duct was transected between clips with Endo scissors I proceeded to continue to dissect the rest of the inflamed fibrotic tissue surrounding the hilum until was able to see the cystic artery. I applied clips on the cystic artery and this was transected between clips with Endo scissors as well. With traction on the gallbladder wall away from the liver bed, I proceeded to then gently divide across the hilum with electrocautery spatula. I incised the peritoneum of the gallbladder wall using the electrocautery spatula and proceeded to carefully define of the plane of dissection between the gallbladder wall and the liver bed. I the gallbladder from the liver bed along this plane of dissection with the tip of the spatula as well as with electrocautery. The gallbladder was very edematous, thickened and markedly inflamed so dissection was a little difficult However were able to eventually separate the entire gallbladder completely from the liver bed this was retrieved through an endobag through the umbilical incision. I reinserted all ports and re-insufflated. I lifted up the liver edge. I examined for hemostasis. I copies irrigated the subhepatic space. I suctioned out the irrigant fluid. Once hemostasis was confirmed, I observed all 4 quadrants. There is no evidence of any other pathology nor any bowel injury I reobserved the subhepatic space. There was note of a small capsular tear near where falciform ligament was aatached to the liver was but this was dry and adequately hemostatic. Once hemostasis was ensured, proceeded to desufflate through the port sites. I removed all ports under vision with the laparoscope. The umbilical port was removed last. The fascia of the umbilical incision was closed with a [id number] Dexon 0 stitch. Skin closure was achieved on all incisions using Dexon 4-0 subcuticular running sutures. Steri-Strips and dressings were applied. All incisions were infiltrated with Marcaine 0.5% for postop analgesia The procedure was then completed. The patient tolerated procedure well. There were no complication noted. Initial and final counts of sponges and instruments were correct. Estimated blood loss about 50 cc The patient was extubated without difficulty and transferred to the recovery room with stable vital signs.
--- NOTE | 2021-09-29 20:49 | PC.NURSE ---
P patient has hands and feet swelling ,fine crackles in bilateral bases I Dr. Conklin notified of the above ,IV fluids D/C E will monitor
[2021-09-29] MEDS: oxyCODONE HCl Immed Release 5 MG TABLET PO (20:53)
[2021-09-30] MEDS: Morphine Sulfate 4 MG/ML CARTRIDGE 3 MG IVPUSH ×2 (00:24→09:18)
[2021-09-30] MEDS: Piperacillin Sodium/Tazobactam 3.375 GM in 0.9 % Sodium Chloride 50 ML IV ×3 (00:25→11:55)
[2021-09-30] MEDS: 0.9 % Sodium Chloride Flush 3 ML SYRINGE IVFLUSH ×2 (01:11→09:29)
[2021-09-30 03:29] VITALS: BP 124/50; PULSE 58; RESP 18; TEMP 36.1; O2SAT 97
[2021-09-30] MEDS: oxyCODONE HCl Immed Release 5 MG TABLET PO ×2 (05:50→12:03)
[2021-09-30] MEDS: Heparin Sodium,Porcine 5,000 UNIT/ML VIAL 5000 UNIT SUBCUT (05:55)
--- NOTE | 2021-09-30 08:21 | PM.PNGS ---
Subjective Subjective Date of Service: 10/02/21 Interval history: She says she had some spasms her over abdominal wall last night Also says she has some swelling of her feet Tolerating diet Physical Exam Vital Signs: Vital Signs: Last Vital Signs Temp 97 F 09/30/21 03:29 Pulse 58 09/30/21 03:29 Resp 18 09/30/21 03:29 BP 124/50 L 09/30/21 03:29 Pulse Ox 97 09/30/21 03:29 O2 Del Method 09/30/21 03:29 O2 Flow Rate 2 09/30/21 03:29 BMI result Body Mass Index 32.3 Const: General: comfortable and no acute distress Resp: Effort & Inspection: normal respiratory effort Cardio: Rate: regular rate GI: Other: Tenderness along incisions, appropriate to postop, dressings dry Palpation (GI): Soft to palpation, not firm and no guarding Objective Data Active Medications Fentanyl (Fentanyl Citrate/Pf 100 Mcg/2 Ml Vial) 25 mcg IVPUSH Q5M PRN; Protocol PRN Reason: Pain, Moderate (Pain Scale 4-6 Heparin Sodium (Porcine) (Heparin Sodium,Porcine 5,000 Unit/Ml Vial) 5,000 unit SUBCUT Q12H [facility] Last Admin: 09/30/21 05:55 Dose: 5,000 unit Documented By: IVORY Piperacillin Sod/Tazobactam (Sod 3.375 gm/ Sodium Chloride) 50 mls @ 100 mls/hr IV Q6H [facility] Last Infusion: 09/30/21 06:32 Dose: 0 mls/hr Documented By: IVORY Morphine Sulfate (Morphine Sulfate 4 Mg/Ml Cartridge) 3 mg IVPUSH Q3H PRN; Protocol PRN Reason: Pain, Severe (Pain Scale 7-10) Last Admin: 09/30/21 00:24 Dose: 3 mg Documented By: IVORY Ondansetron HCl (Ondansetron Hcl 4 Mg/2 Ml Vial) 4 mg IVPUSH Q8H PRN PRN Reason: Nausea and Vomiting Last Admin: 09/29/21 08:04 Dose: 4 mg Documented By: LORY Ondansetron HCl (Ondansetron Hcl 4 Mg/2 Ml Vial) 4 mg IVPUSH ONCE PRN PRN Reason: Nausea and Vomiting Oxycodone HCl (Oxycodone Hcl Immed Release 5 Mg Tablet) 5 mg PO Q4H PRN PRN Reason: Pain, Moderate (Pain Scale 4-6 Last Admin: 09/30/21 05:50 Dose: 5 mg Documented By: IVORY Oxycodone HCl (Oxycodone Hcl Immed Release 5 Mg Tablet) 5 mg PO ONCE PRN PRN Reason: Pain, Severe (Pain Scale 7-10) Pharmacy Consult (Consult Rx Perform Med Rec) 1 each MISCELLANE ONCE PRN PRN Reason: Consult order Sodium Chloride (0.9 % Sodium Chloride Flush 3 Ml Syringe) 3 ml IVFLUSH QSHIFT [facility] Last Admin: 09/30/21 01:11 Dose: 3 ml Documented By: IVORY Labs CBC & Chem 7: 09/29/21 07:38 09/29/21 07:38 Labs: Laboratory Results - last 24 hr 09/29/21 09/29/21 07:38 07:38 MCV 91.4 MCH 29.5 MCHC 32.3 RDW 13.2 Plt Count 266 MPV 10.0 Absolute Nucleated RBC 0.000 Nucleated RBC % (auto) 0.0 Anion Gap 14 Estim Creat Clear Calc 89.8 Estimated GFR > 60 Random Glucose 113 Calcium 8.0 L D Total Bilirubin 0.8 Direct Bilirubin 0.3 AST 23 ALT 22 Alkaline Phosphatase 108 Total Protein 6.0 L D Albumin 3.5 D Procedures Date of Service Date of Service: 09/30/21 Progress Note: A&P Assessment and plan (1) Acute cholecystitis: Status: Acute Assessment and Plan: Status post laparoscopic cholecystectomy Doing well Looks well Had some pain issues along incisions Tolerating diet Stable vital signs Plan to DC home today - patient agreeable Discharge instructions given to the patient No antibiotics will be given instructed on elevating her legs on pillows when she is in bed Time Spent With Patient Time: Total time spent is greater than 50% in coordination of care (as documented) at patient's floor/unit and/or counseling patient: Quality Stroke Does the patient have a stroke diagnosis?: No VTE Prior VTE?: No VTE Risk Level:: Medical - moderate - high VTE Device Contraindication: N/A - Device Ordered VTE Drug Contraindication: N/A - Med Ordered
[2021-09-30 09:11] VITALS: BP 111/58; PULSE 54; RESP 16; TEMP 36.9; O2SAT 93
[2021-09-30 11:31] VITALS: BP 124/61; PULSE 59; RESP 16; TEMP 36.2; O2SAT 93
--- NOTE | 2021-09-30 12:01 | MHC.CM.PN ---
Patient has been medically cleared for dc to home today, self care.
--- NOTE | 2021-09-30 13:49 | HO.POSTANES ---
Post Anesthesia Evaluation Post Anesthesia Evaluation Vital Signs: Vital Signs Temp Pulse Resp BP Pulse Ox O2 Del Method O2 Flow Rate 09/30/21 11:31 97.1 F 59 16 124/61 93 Room Air 09/30/21 09:11 98.4 F 54 16 111/58 L 93 Room Air 09/30/21 03:29 97 F 58 18 124/50 L 97 Nasal Cannula 2 Anesthesia: General Endotracheal-GETA Mental Status: Awake Pain Control: Satisfactory Nausea/Vomiting: None Hydration: Adequate Anesthesia-Related Issues: No Anes. Related Issues
--- NOTE | 2021-10-02 11:31 | P.DS_ITS ---
DS: Providers Provider Date of Service: 09/30/21 Date of admission: 09/28/21 16:58 Date of discharge: 09/30/21 Primary care physician: Unknown Physician DS: Diagnosis Discharge Diagnosis (1) Acute cholecystitis: Status: Acute DS: Summary Hospital Course Hospital Course: 51F admitted 09/28/21 for RUQ pain with imaging studies showing acute cholecystitis. She therefore underwent laparoscopic cholecystectomy 09/29/21. She tolerated the procedure well. She was started on regular diet postop. She tolerated this well. She remained comfortable although did complaining of some abdominal bloating postop. She continued to have stable vital signs with adequate pain control. She was therefore discharged on 09/30/21. Time Spent with Patient Time attestation: Total time spent providing and/or coordinating discharge services: Discharge coordination time: Less than 30 minutes Quality: Safe Use of Opioids Does Pt have an Active Cancer Diagnosis on the Problem List?: No Quality: Stroke Does the patient have a stroke diagnosis?: No Physical Exam Vital Signs: Vital Signs: Last Vital Signs Temp 97.1 F 09/30/21 11:31 Pulse 59 09/30/21 11:31 Resp 16 09/30/21 11:31 BP 124/61 09/30/21 11:31 Pulse Ox 93 09/30/21 11:31 O2 Del Method 09/30/21 11:31 O2 Flow Rate 2 09/30/21 03:29 BMI result Body Mass Index 32.3 Const: General: comfortable and no acute distress Orientation/consciousness: patient oriented x3 Neck: Neck: Yes no lymphadenopathy Resp: Auscultation: clear to auscultation bilaterally Cardio: Rhythm: regular rhythm GI: Other: all incisions clean and dry Palpation (GI): Soft to palpation, nontender and no guarding Neuro: General: patient oriented x3 DS: Data Data Completed and Pending Completed studies during hospitalization [Text1]: Pending at discharge 09/29/21 10:24 Surgical [PTH] Routine Labs on day of discharge: Laboratory Results WBC 9.3 X10*3/uL (4.8-10.8) 09/29/21 07:38 RBC 4.20 X10*6/uL (4.20-5.50) 09/29/21 07:38 Hgb 12.4 g/dl (12.0-16.0) 09/29/21 07:38 Hct 38.4 % (37.0-47.0) 09/29/21 07:38 MCV 91.4 fL (80.0-98.0) 09/29/21 07:38 MCH 29.5 pg (27.0-33.0) 09/29/21 07:38 MCHC 32.3 g/dl (31.0-35.0) 09/29/21 07:38 RDW 13.2 % (11.0-16.0) 09/29/21 07:38 Plt Count 266 X10*3/uL (160-400) 09/29/21 07:38 MPV 10.0 fL (9.4-12.3) 09/29/21 07:38 Immature Gran % (Auto) 0.3 % (0.0-0.4) 09/28/21 03:59 Neut % (Auto) 36.8 % (45-73) L 09/28/21 03:59 Lymph % (Auto) 53.3 % (20-40) H 09/28/21 03:59 [place] % (Auto) 6.4 % (2-11) 09/28/21 03:59 Eos % (Auto) 2.9 % (0-4) 09/28/21 03:59 Baso % (Auto) 0.3 % (0-2) 09/28/21 03:59 Lymph # (Auto) 7.8 X10*3/uL (1.2-4.9) H 09/28/21 03:59 [place] # (Auto) 0.9 X10*3/uL (0.1-1.2) 09/28/21 03:59 Eos # (Auto) 0.4 X10*3/uL (0.0-0.4) 09/28/21 03:59 Baso # (Auto) 0.1 X10*3/uL (0.0-0.2) 09/28/21 03:59 Abs Immat Gran (auto) 0.04 X10*3/uL (0.00-0.03) H 09/28/21 03:59 Absolute Neuts (auto) 5.4 x10*3/uL (2.0-8.3) 09/28/21 03:59 Absolute Nucleated RBC 0.000 X10*3/uL (0.0-0.012) 09/29/21 07:38 Nucleated RBC % (auto) 0.0 /100WBC (0.0-0.2) 09/29/21 07:38 Smear Tech's Comments VERIFIED 09/28/21 03:59 Smear Path Review SEE NOTE 09/28/21 03:59 Sodium 139 mmol/L (135-145) 09/29/21 07:38 Potassium 4.1 mmol/L (3.3-5.1) 09/29/21 07:38 Chloride 104 mmol/L (96-108) 09/29/21 07:38 Carbon Dioxide 25 mmol/L (22-29) 09/29/21 07:38 Anion Gap 14 (12-20) 09/29/21 07:38 BUN 8 mg/dL (9-16) L D 09/29/21 07:38 Creatinine 0.74 mg/dL (0.5-1.4) 09/29/21 07:38 Estim Creat Clear Calc 89.8 09/29/21 07:38 Estimated GFR > 60 09/29/21 07:38 Random Glucose 113 mg/dL (60-115) 09/29/21 07:38 Calcium 8.0 mg/dL (8.4-10.2) L D 09/29/21 07:38 Total Bilirubin 0.8 mg/dL (0.0-1.0) 09/29/21 07:38 Direct Bilirubin 0.3 mg/dL (0.0-0.5) 09/29/21 07:38 AST 23 U/L (5-31) 09/29/21 07:38 ALT 22 U/L (0-31) 09/29/21 07:38 Alkaline Phosphatase 108 U/L (39-117) 09/29/21 07:38 Troponin I High Sens 3.7 ng/L (<3.5-17.0) 09/28/21 03:59 Total Protein 6.0 g/dL (6.5-8.0) L D 09/29/21 07:38 Albumin 3.5 g/dL (3.5-5.0) D 09/29/21 07:38 Lipase 25 U/L (8-78) 09/28/21 03:59 Urine Color YELLOW 09/28/21 11:53 Urine Appearance CLEAR 09/28/21 11:53 Urine pH 6.0 (5.0-8.0) 09/28/21 11:53 Ur Specific [place] 1.025 (1.005-1.025) 09/28/21 11:53 Urine Protein NEG MG/DL (NEG-TRACE) 09/28/21 11:53 Urine Glucose (UA) NEG MG/DL (NEG) 09/28/21 11:53 Urine Ketones 5 MG/DL (NEG) 09/28/21 11:53 Urine Blood 1+ (NEG) H 09/28/21 11:53 Urine Nitrite NEG (NEG) 09/28/21 11:53 Ur Leukocyte Esterase NEG (NEG) 09/28/21 11:53 Urine RBC 0-2 /HPF (0) 09/28/21 11:53 Urine WBC 0 /HPF (0-4) 09/28/21 11:53 Ur Squamous Epith Cells 1+ /LPF 09/28/21 11:53 Urine Bacteria TRACE /LPF 09/28/21 11:53 Urine Mucus 1+ /LPF 09/28/21 11:53 Urine Test NEGATIVE (NEGATIVE) 09/28/21 11:53 COVID-19 (ADELE) Negative (Negative) 09/28/21 18:53 COVID-19 Clin Com See Note 09/28/21 18:53 Impressions Abdomen Ultrasound 09/28/21 12:15 IMPRESSION: Gallbladder with calculi and an impacted stone at the gallbladder neck with a positive Hwang's sign with associated mildly dilated common bile duct. Findings are suggestive of cholecystitis. In 2019, the patient had similar scenario, went on to have a HIDA scan which showed a patent cystic duct but with poor gallbladder emptying and low ejection fraction thought to represent chronic cholecystitis Abdomen/Pelvis CT 09/28/21 14:24 IMPRESSION: 1. Mild thickening of gallbladder wall. This could be seen with chronic or acute cholecystitis. No bile duct dilatation. 2. Scattered diverticula of the colon. No acute change of the bowel. Fleischner guidelines were followed. Discharge Plan Discharge Patient Disposition: Home, Self-Care Discharge Diagnosis: Acute cholecystitis Referrals: Jose Martin MD [Physician] - 1 Week Physician,Nina J [Primary Care Provider] - 1 Week Discharge Medications: New oxycodone-acetaminophen [Percocet] 5-325 mg tablet 1 tab PO Q4-6H PRN (Reason: pain) Qty: 30 0RF Rx Instructions: Partial Fill upon patient request. ibuprofen 600 mg tablet 600 mg PO Q6H PRN (Reason: pain) Qty: 30 0RF No Action ondansetron HCl 4 mg tablet 4 mg PO Q8H PRN (Reason: nausea and vomiting) Qty: 10 0RF Discharge Orders: Discharge Order (Routine); Ordered 09/30/21 Ordered By: Jose Martin Activity on Discharge: No heavy lifting Stand Alone Forms: Patient Portal Discharge page Activity Restrictions/Additional Instructions: If the incision area is tender, you may apply an ice pack for short intervals (No more than 20 minutes on, followed by at least 20 minutes off). Do not apply heat. Do not use creams, lotions, or topical antibiotics unless instructed to do so by your surgeon. These can cause infection or allergic reaction. OK to shower after 24 hours OK to change dressings with Bandaids after 24H No lifting more than 20 lbs No strenuous activities Call the office for follow-up in 2 weeks - with Dr. Martin Call Your Doctor If: -Your temperature exceeds 101.5? F -You experience excessive pain or swelling -You have an unexpected reaction to medication -You have excessive bleeding -You experience continued vomiting/nausea -Your incision begins to separate -Your incision shows signs of infection such as increased redness, swelling, excessive pain, drainage (light blood or clear fluid is normal) or heat Care Plan Goals: Pain control postop Health Concerns: Pain control postop Plan of Treatment: Oral pain meds Follow-up in the office for wound check Assessment: Doing well postop Discharge Date/Time: 09/30/21 13:25
== END 2021-09-30 13:25 | disposition home or self-care (01) | DRG 263 ==
LOC: HO.ED 14:20 → HO.EDOVER 17:13 → HO.S3 19:24
PROVIDERS: Physician Assistant Medical; Admitting Provider Surgery; Emergency Provider Emergency Medicine; Visit Provider Surgery
PROC: 0FT44ZZ Resection of Gallbladder, Percutaneous Endoscopic Approach (ICD-10-PCS; CPT 47562; principal; 2021-09-29 12:40)
DX: K80.00 Calculus of gallbladder with acute cholecystitis without obstruction (principal); G89.29 Other chronic pain; M54.9 Dorsalgia, unspecified; Z20.822 Contact with and (suspected) exposure to COVID-19; Z98.51 Tubal ligation status
CPT/HCPCS: 47562; 36415; 74177; 76705; 80048; 80053; 80076; 81001; 81025; 83690; 84484; 85025; 85027; 87635; 88304; 93005; 96361; 96374; 96375; 96376; 99284; 99285; J0131; J1100; J1885; J2250; J2270; J2405; J2543; J2795; J3010; Q9967

== ENCOUNTER → 2021-10-27 10:58 | Outpatient (BNVA) | payer OTHER, SELFPAY | PROVIDERS: Visit Provider Surgery | DX: Z48.02 Encounter for removal of sutures (principal) | CPT/HCPCS: 99211 ==

== ENCOUNTER 2024-04-16 16:04 | Emergency (ER) | payer OTHER, SELFPAY ==
--- NOTE | ~2024-04-16 | XR_ITS ---
CLINICAL HISTORY: chest tightness 2 view chest x-ray Comparison: CR - CHEST 2 VIEWS [id number] - 10/17/15 19:47 EDT Findings: The lungs are clear. Normal size heart. No acute fracture. IMPRESSION: 1. No acute findings. This document has been electronically signed by: Tarun Cardoza MD on 04/16/2024 18:04:59
--- NOTE | ~2024-04-16 | XR_ITS ---
CLINICAL HISTORY: sore throat 2 views soft tissue neck Comparison: None Findings No significant airway narrowing of the imaged airway. Prevertebral soft tissues are within normal limits from the craniocervical junction to the glottis. Variant asymmetric calcifications of the imaged thyroid cartilage. No definite radiopaque retained foreign body of the imaged aerodigestive tract. Degenerative changes include imaged spine straightening of the cervical lordosis. Imaged lung apices are well aerated. IMPRESSION: No acute or significant airway narrowing by two-view radiograph. This document has been electronically signed by: Gavin Pollock MD on 04/16/2024 23:09:38
--- NOTE | 2024-04-16 16:08 | ECG_ITS ---
Test Reason : CHEST PAIN Blood Pressure : */* mmHG Vent. Rate : 63 BPM Atrial Rate : 63 BPM P-R Int : 126 ms QRS Dur : 86 ms QT Int : 408 ms P-R-T Axes : 42 -6 45 degrees QTcB Int : 417 ms Normal sinus rhythm Anterior infarct , age undetermined Abnormal ECG When compared with ECG of 28-Sep-2021 04:02, No significant change was found Referred By: Norma Fajardo Electronically Signed By: NATALIE AVALOS
[2024-04-16 16:40] VITALS: BP 123/47; PULSE 61; RESP 16; TEMP 36.8; O2SAT 100; BMI 32.2
--- NOTE | 2024-04-16 16:43 | ED_ITS ---
HPI - General Adult General Chief complaint: Upper Respiratory Symptoms Stated complaint: chest pain,dizziness, hoarse voice Time Seen by Provider: 04/16/24 22:45 History of Present Illness ED Provider: Yusef ANDERSON narrative: The patient is a 53-year-old female says that about 2 weeks ago she was exposed to a child with a viral illness. Not long after that she had a change in her voice for which she went to her primary care doctor's office. She was thought to have laryngitis. She was prescribed amoxicillin and prednisone. This was about 10 days ago. She feels that her voice has not gotten any better. She feels that she has a knot in her throat when she swallows but she is able to swallow. No definite fever, sweats, chills. Related Data Previous Rx's ?Medication ?Instructions ?Recorded prednisone 20 mg tablet 20 mg PO DAILY #12 tabs 04/16/24 Allergies Allergy/AdvReac Type Severity Reaction Status Date / Time No Known Allergies Allergy Verified 04/16/24 16:43 [No Known Allergies*] Review of Systems 2 Review of Systems: Yes all other systems are reviewed and are negative [facility] Past Medical History Medical History Acute cholecystitis Bronchitis Chronic back pain Surgical History History of laparoscopic cholecystectomy Status post laparoscopic cholecystectomy Tubal ligation status Family History Family History Mother No problems noted. Father History of throat cancer Social History Social History Household Members: Family Housing: House Do you presently have visiting nurse or other home services: No Unable to assess alcohol history related to: Unknown Alcohol intake: never Patient Tobacco Use Status: Never used Tobacco Use of substances other than those prescribed or required for medical reasons: No Advance Directives: No Advance Directives Information Provided: Yes Do you have a plan to hurt others: No Plan service: No Current occupational status: disabled Physical Exam ED Vital Signs: Vital Signs - 24 hr 04/16/24 16:40 04/16/24 22:52 04/16/24 23:37 Temperature 98.3 F 98.2 F 98.2 F Pulse Rate 61 66 66 Respiratory Rate 16 20 20 Blood Pressure 123/47 L 128/62 128/62 Pulse Oximetry 100 99 99 Oxygen Delivery Method Room Air Room Air Room Air BMI result Body Mass Index 32.2 Const Other: The patient is awake and alert. She is pleasant and cooperative. She does not appear obviously ill but she does have an obviously abnormal voice. She has a raspy voice suggestive of laryngitis. No hot potato voice. Orientation/consciousness: patient oriented x3 HENMT Other: Face is symmetrical. The posterior pharynx seems normal. No soft tissue swelling. No edema. No erythema or exudate. Eyes General: appearance normal, both eyes and all related structures Neck Other: Neck seems benign. Neck: Yes full ROM and Yes no lymphadenopathy Resp Effort & Inspection: normal respiratory effort Auscultation: clear to auscultation bilaterally Cardio Rate: regular rate Rhythm: regular rhythm Heart sounds: S1 normal heart sound present and S2 normal heart sound present Skin General skin exam: no rashes or lesions noted Neuro General: patient oriented x3, tone normal, moves all extremities and CN's II-XI intact bilaterally Extrem Other: No peripheral edema Course Course Course Narrative: This is a Rapid Medical Examination (RME) performed by Jef Fajardo PA-C in triage. Full HPI, ROS, assessment and treatment plan per primary provider in the Main ED. 53 yo female here for eval of hoarse voice and chest tightness. reports a knot sensation in throat. seen at walk in a few days ago. finished course of prednisone, currently on abx. sent here today for new chest tightness. Plan: ekg, viral/ strep swabs, cxr Medications Administered Discontinued Medications Generic Name Dose Route Start Last Admin Trade Name Rupertq PRN Reason Stop Dose Admin Prednisone 60 mg 04/16/24 23:25 04/16/24 23:32 Prednisone 20 Mg Tablet PO 04/16/24 23:26 60 mg ONCE ONE Administration Medical Decision Making Medical Decision Making [facility] Narrative: The patient is a 53-year-old female comes to the emergency room with a very weak voice. Her speech is is abnormal and seems consistent mostly with laryngitis. It is not a hot potato voice. She has no trouble handling her secretions. This has been going on for almost 2 weeks. She was apparently prescribed a course of prednisone and amoxicillin by her PCP's office. He is not certain what dose of prednisone she received. She is frustrated that she has not improved. She also complained of chest tightness and dizziness. Patient's workup in the emergency room is unremarkable. she has an unchanged EKG. Chest x-ray is negative. Soft tissue x-ray of the neck is unremarkable. Her CBC shows an elevated white count but with a lymphocytosis. Viral panel is negative. Clinically the patient does not look toxic and has unremarkable vital signs. I think this is a case of prolonged laryngitis. We will try another course of prednisone. She should follow up with her PCP. Return if worse. Lab Data 04/16/24 17:08 04/16/24 17:07 Labs: Lab Results 04/16/24 04/16/24 04/16/24 Range/Units 17:07 17:08 23:35 WBC 15.0 H (4.8-10.8) X10*3/uL RBC 4.88 (4.20-5.50) X10*6/uL Hgb 14.6 (12.0-16.0) g/dl Hct 43.5 (37.0-47.0) % MCV 89.1 (80.0-98.0) fL MCH 29.9 (27.0-33.0) pg MCHC 33.6 (31.0-35.0) g/dl RDW 12.7 (11.0-16.0) % Plt Count 364 D (160-400) X10*3/uL MPV 9.2 L (9.4-12.3) fL Immature Gran % (Auto) 0.5 H (0.0-0.4) % Neut % (Auto) 41.1 L (45-73) % Lymph % (Auto) 48.4 H (20-40) % [place] % (Auto) 8.2 (2-11) % Eos % (Auto) 1.5 (0-4) % Baso % (Auto) 0.3 (0-2) % Lymph # (Auto) 7.2 H (1.2-4.9) X10*3/uL [place] # (Auto) 1.2 (0.1-1.2) X10*3/uL Eos # (Auto) 0.2 (0.0-0.4) X10*3/uL Baso # (Auto) 0.0 (0.0-0.2) X10*3/uL Abs Immat Gran (auto) 0.07 H (0.00-0.03) X10*3/uL Absolute Neuts (auto) 6.2 (2.0-8.3) x10*3/uL Absolute Nucleated RBC 0.000 (0.0-0.012) X10*3/uL Nucleated RBC % (auto) 0.0 (0.0-0.2) /100WBC Smear Tech's Comments VERIFIED Sodium 140 (135-145) mmol/L Potassium 5.1 (3.3-5.1) mmol/L Chloride 101 (96-108) mmol/L Carbon Dioxide 30 H (22-29) mmol/L Anion Gap 14 (12-20) BUN 17 H (9-16) mg/dL Creatinine 0.80 (0.5-1.4) mg/dL Estim Creat Clear Calc 79.6 Estimated GFR > 60 Random Glucose 105 (60-115) mg/dL Calcium 9.5 D (8.4-10.2) mg/dL Magnesium 2.1 (1.6-2.6) mg/dL Total Bilirubin 0.2 (0.0-1.0) mg/dL AST 21 (5-31) U/L ALT 25 (0-31) U/L Alkaline Phosphatase 114 (39-117) U/L Troponin I High Sens < 2.7 (<3.5-17.0) ng/L C-Reactive Protein 0.29 (< or = 0.50) mg/dL Total Protein 8.1 H (6.5-8.0) g/dL Albumin 3.9 (3.5-5.0) g/dL Respiratory Panel Mcnally See Note Adenovirus (Rapid PCR) Not Detected (Not Detect.) B.pert (TEM-PCR) Not Detected (Not Detect.) B.parapertussis DNA PCR Not Detected (Not Detect.) C. pneumoniae DNA (PCR) Not Detected (Not Detect.) Coronavirus OC43 (PCR) Not Detected (Not Detect.) Coronavirus HKU1 (PCR) Not Detected (Not Detect.) Coronavirus 229E (PCR) Not Detected (Not Detect.) Coronavirus NL63 (PCR) Not Detected (Not Detect.) Human Metapneumovir PCR Not Detected (Not Detect.) Influenza A (RT-PCR) Not Detected (Not Detect.) Influenza Type A (PCR) NEGATIVE (Negative) Influenza B (RT-PCR) Not Detected (Not Detect.) Influenza Type B (PCR) NEGATIVE (Negative) M. pneumoniae (PCR) Not Detected (Not Detect.) Parainfluenza 1 (PCR) Not Detected (Not Detect.) Parainfluenza 2 (PCR) Not Detected (Not Detect.) Parainfluenza 3 (PCR) Not Detected (Not Detect.) Parainfluenza 4 (PCR) Not Detected (Not Detect.) RSV (PCR) Not Detected (Not Detect.) RSV RNA Qual (PCR) NEGATIVE (Negative) Entero/Rhino (PCR) Not Detected (Not Detect.) SARS-CoV-2 RNA (RT-PCR) NEGATIVE Not Detected (Negative) S. pyogenes GrpA JORGE Negative (Negative) Discharge Plan Discharge Clinical Impression: Laryngitis Patient Disposition: Home, Self-Care Additional Instructions: Your testing in the emergency room today is very reassuring from the point of view of any acutely dangerous process. I think the change in your voice is the result of a viral infection which I hope will get better in the next several days. I have prescribed a 2nd course of prednisone. I suspect this will probably be at a higher dose than the previous course of prednisone. My hope is that this may be beneficial for your symptoms. Please stay in touch with your regular doctor for additional advice as needed. Get checked again if not improving. Return to the emergency room if significantly worse. Prescriptions: New prednisone 20 mg tablet 20 mg PO DAILY Qty: 12 0RF Rx Instructions: Take 3 tablets by mouth daily for 2 days then take 2 tablets by mouth daily for 3 days. Referrals: Christine Vargas MD [Primary Care Provider] - (laryngitis) Interventions: ED Discharge Assessment Last Done: 04/16/24 23:37 Discharge Date/Time: 04/16/24 23:37 Print Language: Croatian
[2024-04-16 17:18] LABS: Basophils Percent Auto 0.3 % (0-2); Eosinophils Absolute Auto 0.2 X10*3/uL (0.0-0.4); Eosinophils Percent Auto 1.5 % (0-4); Hematocrit 43.5 % (37.0-47.0); Hemoglobin 14.6 g/dl (12.0-16.0); Imm Gran Abs Auto 0.07 X10*3/uL (0.00-0.03); Imm Gran Pct Auto 0.5 % (0.0-0.4); Lymphocytes Percent Auto 48.4 % (20-40); MANUAL DIFF FLAG SCAN; Mean Corpuscular HGB Conc 33.6 g/dl (31.0-35.0); Mean Corpuscular Hemoglobin 29.9 pg (27.0-33.0); Mean Corpuscular Volume 89.1 fL (80.0-98.0); Mean Platelet Volume 9.2 fL (9.4-12.3); Monocytes Absolute Auto 1.2 X10*3/uL (0.1-1.2); Monocytes Percent Auto 8.2 % (2-11); Neutrophils Absolute Auto 6.2 x10*3/uL (2.0-8.3); Neutrophils Percent Auto 41.1 % (45-73); Platelet Count 364 X10*3/uL (160-400); Red Blood Count 4.88 X10*6/uL (4.20-5.50); Red Cell Distribution Width 12.7 % (11.0-16.0); SCAN SMEAR FLAG 1
[2024-04-16 17:19] LABS: Lymphocytes Absolute Auto 7.2 X10*3/uL (1.2-4.9)
[2024-04-16 17:24] LABS: IDNOW Serial# 58CA691E
[2024-04-16 17:25] LABS: Strep A Nucleic Acid Negative (Negative)
[2024-04-16 17:36] LABS: Alanine Aminotransferase 25 U/L (0-31); Albumin Level 3.9 g/dL (3.5-5.0); Anion Gap 14 (12-20); Aspartate Amino Transferase 21 U/L (5-31); Bilirubin Total 0.2 mg/dL (0.0-1.0); Blood Urea Nitrogen 17 mg/dL (9-16); Calcium 9.5 mg/dL (8.4-10.2); Carbon Dioxide 30 mmol/L (22-29); Chloride 101 mmol/L (96-108); Creatinine Clr Calc Pharmacy 79.6; Estimated Glomerular Filt Rate > 60; Glucose Random 105 mg/dL (60-115); Magnesium 2.1 mg/dL (1.6-2.6); Potassium 5.1 mmol/L (3.3-5.1); Sodium 140 mmol/L (135-145); Total Protein 8.1 g/dL (6.5-8.0)
[2024-04-16 17:38] LABS: Troponin-I High Sensitivity < 2.7 ng/L (<3.5-17.0)
[2024-04-16 17:43] LABS: SLIDE REVIEW VERIFIED
[2024-04-16 17:57] LABS: Alkaline Phosphatase 114 U/L (39-117)
[2024-04-16 18:01] LABS: Influenza A PCR NEGATIVE (Negative); Influenza B PCR NEGATIVE (Negative); Resp Syncy Virus RNA Qual PCR NEGATIVE (Negative); SARS COV2 PCR INHOUSE NEGATIVE (Negative)
--- OUTSIDE RECORDS SUMMARY | 2024-04-16 22:07 | XMS_ITS | Encounter Summary ---
Author Organization [employer] Address [address] [place] [address] Care Team Providers Care Body Liner Name Role Phone Christine Martinez MD Primary Care Prov ider Reason for Visit * Reason Onset Date Comments Sore Throat 04/10/2024 Encounter Details Date Type Department Care Team ([facility] st Contact Info) Description 04/10/2024 Telephone Adult Medicine [address] [phone] Christine Martinez MD [address] [place] [id number] Sore Throat Social History Tobacco Use Types Packs/Day Years Used Date Smoking Tobacco: Never Smokeless Tobacco: Never Alcohol Use Standard Drinks/Week Comments No 0 (1 standard drink = 0.6 oz pur e alcohol) Comments Unknown Sex and Gender Information Value Date Recorded Sex Assigned at Not on file Legal Sex Female 3:48 PM EDT Gender Identity Not on file Sexual Orientation Not on file documented as of this encounter Progress Notes * Tasneem Conway RN - 04/11/2024 4:04 PM EST Pt was seen 04/10 and diagnosed with laryngitis Advised she was given abx and steroid. This should help with her symptoms. If at the end of her treatment and not feeling better then could be viral and needs to run its course. Advised if worsening symptoms then per provider visit she needs to go to the ER for further eval. She stated understanding * Ayleen Umana - 04/11/2024 3:27 PM EST Patient is calling back in regards to her first encounter. PT was seen yesterday in office but pt didn't like that they wasn't a diagnosis. PT would like a swab test done. Pt has started to have a cough and its keeping her up all night long. Please advise * Tasneem Conway RN - 04/10/2024 11:06 AM EST Sore throat weston when she coughs. Feels like her throat is swollen and hard to swallow. She does have some laryngitis Hard to eat, small meals. Drinking a lot of water and tea Hard to sleep because her throat dries out Scheduled eval for 04/10 at 1:15 * Rosa Adorno - 04/10/2024 10:51 AM EST Patient call requires triage: Symptoms patient is presenting: c/o sore throat painful to swollow and hurts when she coughs How long has patient had these symptoms?: 04/07/24 For ALL patients calling to schedule any appointment (routine, sick visit, follow up, consult, etc.) in the outpatient setting please ask the following questions: Do you have fever of higher than 101, sore throat with difficulty swallowing or severe shortness ofbreath? yes If YES to any of these above symptoms, send a message to triage and do not book. Red dot. If no, an audio or video visit should be booked. Have you had close contact with someone with Coronavirus in the last 14 days? no Have you traveled abroad? no Have you traveled recently to another state outside of [place], [place], [place], [place], [place], [place], [place]? no o If yes, did you quarantine for 14 days or have a negative covid test? no If yes to any of the above, patient is not to be scheduled in office until after 14 day quarantine or negative covid test. If pain or injury related was it due to an accident at work or from a motor vehicle accident? If yes, date of accident/Injury: No If yes, gather 3rd alliance party insurance information Third Constitution Party Information: not applicable PCP: Christine Toscano MD Payor: / No coverage found. documented in this encounter Plan of Treatment Not on file documented as of this encounter Visit Diagnoses Not on filedocumented in this encounter Care Teams Body Liner Relationship Specialty Start Date End Date Christine Martinez MD [address] [place] [id number] PCP - General Internal Medicine 04/10/24 documented as of this encounter
--- OUTSIDE RECORDS SUMMARY | 2024-04-16 22:07 | XMS_ITS | Encounter Summary ---
Author Organization [employer] Address [address] [place] [address] Care Team Providers Care Heel Washer Stringing Machine Operator Name Role Phone Christine Martinez MD Primary Care Prov ider Reason for Visit * Reason Comments Sore Throat Encounter Details Date Type Department Care Team (Late st Contact Info) Description 04/10/2024 4:30 PM EST Office Visit Adult Medicine [facility] [address] [place] [address] Charli Jack PA [address] [place] [address] Laryngitis (Primary Dx); Pharyngitis, unspecified etiology Social History Tobacco Use Types Packs/Day Years [...] on file documented as of this encounter Last Filed Vital Signs Vital Sign Reading Time Taken Comments Blood Pressure 118/70 04/10/2024 4:35 PM EST Pulse 80 04/10/2024 4:35 PM EST Temperature 36.6 ??C (97.9 ??F) 04/10/2024 4:35 PM ES T Respiratory Rate 12 04/10/2024 4:35 PM EST Oxygen Saturation - - Inhaled Oxygen Concentration - - Weight 79.4 kg (175 lb) 04/10/2024 4:35 PM EST Height 157.5 cm (5' 2 ) 04/10/2024 4:35 PM EST Body Mass Index 32.01 04/10/2024 4:35 PM EST documented in this encounter Ordered Prescriptions Prescription Sig Dispense Quantity Refills Last Filled Start Date End Date amoxicillin-clavul anate (AUGMENTIN) 875-125 mg per tablet Take 1 tablet by mouth 2 (two) times a day for 10 days. 20 each 04/10/2024 5 predniSONE (DELTASONE) 20 mg tablet Take 2 tablets (40 mg total) by mouth 1 (one) time each day for 5 days. 10 each 04/10/2024 5 documented in this encounter Progress Notes * SHANNAN Calderon - 04/10/2024 4:30 PM EST PATIENT'S PCP: Christine Toscano MD LAST VISIT IN THIS DEPARTMENT: Visit date not found LAST VISIT WITH THIS PROVIDER: Visit date not found Madeline Saldivar is a 53 y.o. (: 1970) female who presents today for: Chief Complaint Patient presents with Sore Throat Assessment/Plan Assessment & Plan Laryngitis Pharyngitis, unspecified etiology She most likely has a viral pharyngitis/laryngitis, however she rates her pain as an 8 out of 10. There is some erythema and some tonsillar hypertrophy on exam, but no evidence of peritonsillar abscess. No evidence of Kenneth's angina or epiglottitis. A family member of hers, her grandson I believe,is sick with similar symptoms. Will treat with Augmentin to cover for potential bacterial componentand prednisone to treat cough and inflammation causing sore throat. Discussed with any worsening symptoms would recommend she go to the emergency department. No follow-ups on file. Subjective 53 y/o F She complains of 4 days of sore throat She is drinking and eating without difficulty No SOB No drooling A family member was recently sick with similar symptoms She is most bothered by her symptoms late at night She also complains of a hoarse voice Review of Systems Constitutional: Negative for chills and fever. HENT: Positive for sore throat. Negative for ear pain and sinus pain. Respiratory: Positive for cough. Negative for shortness of breath. Cardiovascular: Negative for chest pain. Endocrine: Negative for polydipsia and polyuria. Genitourinary: Negative for flank pain. Musculoskeletal: Negative for joint swelling. Skin: Negative for rash. Neurological: Negative for headaches. Psychiatric/Behavioral: Negative for confusion. The following portions of the patient's chart were reviewed in this encounter and updated as appropriate: Tobacco Allergies Meds Problems Med Hx Surg Hx Fam Hx Objective Visit Vitals BP 118/70 Pulse 80 Temp 36.6 ??C (97.9 ??F) Resp 12 Ht 1.575 m (62 ) Wt 79.4 kg (175 lb) BMI 32.01 kg/m?? Smoking Status Never BSA 1.81 m?? BP Readings from Last 3 Encounters: 04/10/24 118/70 09/30/23 116/71 02/02/23 108/77 Wt Readings from Last 3 Encounters: 04/10/24 79.4 kg (175 lb) 09/30/23 84.9 kg (187 lb 3.2 oz) 02/02/23 84.9 kg (187 lb 3.2 oz) Physical Exam Constitutional: General: She is not in acute distress. Appearance: Normal appearance. HENT: Right Ear: Tympanic membrane, ear canal and external ear normal. Left Ear: Tympanic membrane, ear canal and external ear normal. Nose: Congestion present. Mouth/Throat: Mouth: Mucous membranes are dry. Pharynx: Posterior oropharyngeal erythema present. No oropharyngeal exudate. Eyes: Pupils: Pupils are equal, round, and reactive to light. Cardiovascular: Rate and Rhythm: Normal rate and regular rhythm. Heart sounds: No murmur heard. Pulmonary: Effort: No respiratory distress. Breath sounds: No wheezing, rhonchi or rales. Abdominal: Palpations: Abdomen is soft. Musculoskeletal: General: No deformity. Cervical back: Normal range of motion and neck supple. Skin: Coloration: Skin is not jaundiced. Findings: No rash. Neurological: Mental Status: She is alert and oriented to person, place, and time. Mental status is at baseline. Psychiatric: Mood and Affect: Mood normal. Behavior: Behavior normal. Allergies Allergen Reactions Lidocaine-Epinephrine Swelling and Numbness Other Reaction(s): Numbness, tingling or swelling of the lips, tongue or mouth Patient underwent excision of a left elbow foreign body, lidocaine with epi was used. Reports she presented to the ED the following day with face/lip swelling and numbness, as well as prolonged numbness in region where anesthetic was injected Other Itching and Runny nose Seasonal allergies Current Outpatient Medications Medication Instructions amoxicillin-clavulanate (AUGMENTIN) 875-125 mg per tablet 1 tablet, oral, 2 times daily cetirizine (ZyrTEC) 10 mg tablet TAKE 1 TABLET BY MOUTH EVERY DAY fluticasone propionate (FLONASE) 50 mcg/actuation nasal spray SPRAY 2 SPRAYS INTO EACH NOSTRIL EVERY DAY loratadine 10 mg capsule Take 1 Capsule by mouth daily. LORazepam (ATIVAN) 0.5 mg tablet Take 0.5 mg by mouth at bedtime as needed. montelukast (SINGULAIR) 10 mg tablet Take 1 Tablet by mouth at bedtime. predniSONE (DELTASONE) 40 mg, oral, Daily IMAGING/LABORATORY: None SHANNAN Calderon [facility] [address] [phone] documented in this encounter Plan of Treatment Not on file documented as of this encounter Visit Diagnoses Diagnosis Laryngitis- Primary Acute laryngitis, without mention of obstruction Pharyngitis, unspecified etiology documented in this encounter Care Teams Heel Washer Stringing Machine Operator Relationship Specialty Start Date End Date Christine Martinez MD [address] [place] [id number] PCP - General Internal Medicine 04/10/24 documented as of this encounter
--- OUTSIDE RECORDS SUMMARY | 2024-04-16 22:07 | XMS_ITS | Clinical Summary ---
Author Organization Patient Business Ser [facility] Address [address] [place] [address] Care Team Providers Care Adoption Specialist Name Role Phone Christine Martinez MD Primary Care Prov ider Allergies Active Allergy Reactions Criticality Noted Date Comments Lidocaine-Epinephrin e Swelling,Numbness 10/30/2020 Other Reaction(s): Numbness, tingling or swelling of the lips, tongue or mouth Patient underwent excision of a left elbow foreign body, lidocaine with epi was used. Reports she presented to the ED the following day with face/lip swelling and numbness, as well as prolonged numbness in region where anesthetic was injected Other Itching,Runny nose 08/19/2014 Seasonal allergies Medications loratadine 10 mg capsule Take 1 Capsule by mouth daily. 09/30/2023 Active cetirizine (ZyrTEC) 10 mg tablet TAKE 1 TABLET BY MOUTH EVERY DAY 10/04/2022 Active montelukast (SINGULAIR) 10 mg tablet Take 1 Tablet by mouth at bedtime. 10/01/2022 Active fluticasone propionate (FLONASE) 50 mcg/actuation nasal spray SPRAY 2 SPRAYS INTO EACH NOSTRIL EVERY DAY 08/27/2022 Active LORazepam (ATIVAN) 0.5 mg tablet Take 0.5 mg by mouth at bedtime as needed. 04/24/2019 Active amoxicillin-cla vulanate (AUGMENTIN) 875-125 mg per tablet Take 1 tablet by mouth 2 (two) times a day for 10 days. 20 each 04/10/2024 04/20/19 25 Active predniSONE (DELTASONE) 20 mg tablet Take 2 tablets (40 mg total) by mouth 1 (one) time each day for 5 days. 10 each 04/10/2024 04/15/19 25 Active Problems Problem Noted Date Diagnosed Date Conjunctivitis, allergic, bilateral 03/10/2020 Hyposmia 03/10/2020 Perennial allergic rhinitis 03/10/2020 Seizure disorder 06/29/2019 Overview (01/24/2024): Follows with neurology (Miguel) MRI Brain [facility] 05/2019: Sinus Mucosal Thickening CT Brain [facility] 2018 WNL EEG 03/2019 WNL Amb EEG in [facility] 2019: Mildly Abnormal Obstructive sleep apnea 04/10/2019 Overview (01/24/2024): [facility] Home Sleep Apnea Test: Date 04/04/2019; Wt 150#; BMI 27; VINEET 7, AI 0.2; HI 6.5; Unclassified apneas 0; Obstructive apneas 0; Central apneas 1; Mixed apneas 0; hypopneas 37; average oxygen saturation 92% (lowest 84% without saturations <88% for 5% or more of study) [facility] Home sleep test 06/04/2021. Weight 188; BMI 34. AHI 11. 1 unclassified apnea, 1 obstructive apnea, 2 central apneas, 80 hypopneas. Average oxygen saturation 91% with oxygen mis 81%. - Obstructive Sleep Apnea - mild; mostly hypopneas; without sleep related hypoventilation by 2019 home sleep apnea test. Obstructive sleep apnea-mild with mostly hypopneas and without nocturnal hypoxemia based on 2021 home sleep test. Chronic right shoulder pain 02/22/2018 Encounters Date Type Department Care Team Description 04/16/2024 Telephone Adult Medicine [address] [phone] Christine Martinez MD Oral Swelling 04/10/2024 4:30 PM EST Office Visit Adult Medicine [address] [phone] Charli Jack PA Laryngitis (Primary Dx); Pharyngitis, unspecified etiology 04/10/2024 Telephone Adult Medicine [address], [place] [phone] Christien Martinez MD Sore Throat 02/23/2024 Telephone Adult Medicine [address] [phone] Christine Martinez MD Abdominal Pain 02/21/2024 Telephone Adult Medicine [address] [phone] Christine Martinez MD triage from Last 3 Months Immunizations Name Administration Dates Next Due Tdap Tetanus diptheria acell ular pertussis (Boostrix; Adacel) 7yo and older 08/28/2018 Surgical History Surgery Date Site/Laterality Comments OTHER SURGICAL HISTORY 02/22/1988 PROCEDURE: HISTORICAL D&C; COMMENT: hemorrhage TUBAL LIGATION 02/22/1992 PROCEDURE: HISTORICAL TUBAL LIGATION CERVICAL BIOPSY W/ LOOP ELECTRODE EXCISION PROCEDURE: FL CONIZATION CERVIX W/WO D&C RPR ELTRD EXC COLONOSCOPY 03/24/2022 PROCEDURE: HISTORICAL COLONOSCOPY; COMMENT: muslu - hemorrhoids, diverticulosis repeat 10 years Medical History Medical History Date Comments Early menopause 01/30/2013 DX:Early menopau se Lumbar disc herniation 07/01/2015 DX:Lumbar disc herniation; COMMENT: Sensory nerve conduction threshold 11/11/14 / very mild sensory dysfunction right leg Diverticula of colon DX:Divertic brooklynn of colon Sigmoid diverticulitis DX:Sigmoi d diverticulitis Sigmoid diverticulosis 04/27/2018 DX:Sigmoi d diverticulosis; COMMENT: Had first episode of diverticulitis 03/2018 Family History Medical History Relation Name Comments Throat cancer Father was a smoker Asthma Sister 1 1/2 sibling Other: allergic rhinitis Sister 1 Breast cancer Neg Hx Cancer of Small Bowel Neg Hx Colon cancer Neg Hx Kidney cancer Neg Hx Ovarian cancer Neg Hx Pancreatic cancer Neg Hx Uterine cancer Neg Hx Relation Name Status Comments Brother Alive Father Mother Alive Sister 1 Alive Sister 2 Alive Sister 3 Alive Sister 4 Alive Sister 5 Alive Social History Tobacco Use Types Packs/Day Years Used Date Smoking Tobacco: Never Smokeless Tobacco: Never Alcohol Use Standard Drinks/Week Comments No 0 (1 standard drink = 0.6 oz pur e alcohol) Comments Unknown Sex and Gender Information Value Date Recorded Sex Assigned at Not on file Legal Sex Female 3:48 PM EDT Gender Identity Not on file Sexual Orientation Not on file Obstetrics History Last Filed Vital Signs Vital Sign Reading [...] Mass Index 32.01 04/10/2024 4:35 PM EST Plan of Treatment Health Maintenance Due Date Last Done Comments Breast Cancer Screening 1970 Hepatitis B Vaccines (1 of 3 - 19+ 3-dose series) 1989 Pneumococcal Vaccine: 50+ Years (1 of 1 - PCV) 2020 Zoster Vaccines (1 of 2) 2020 HIV Screening 12/04/2021 Medicare Annual Wellness Visit 12/04/2021 Social Influencers of Health Screening 12/04/2021 COVID-19 Vaccine (1 - 2023-2 5 season) 2023 Influenza Vaccine (#1) 2023 Depression Screening 09/29/2024 09/30/2023 Cervical Cancer Screening: HPV 02/03/2028 02/02/2023 DTaP,Tdap,and Td Vaccines (2 - Td or Tdap) 08/28/2028 08/28/2018 Cholesterol Screening (Lipid Panel) 10/06/2028 10/07/2023, 10/07/2023 Colorectal Cancer Screening: Colonoscopy 03/24/2032 03/24/2022 Hepatitis C Screening Completed 10/07/2023 HIB Vaccines Aged Out No longer eligi ble based on patient's age to complete this topic HPV Vaccines Aged Out No longer eligi ble based on patient's age to complete this topic Hepatitis A Vaccines Aged Out No long er eligible based on patient's age to complete this topic IPV Vaccines Aged Out No longer eligi ble based on patient's age to complete this topic MMR Vaccines Aged Out No longer eligi ble based on patient's age to complete this topic Meningococcal ACWY Vaccine Aged Out N o longer eligible based on patient's age to complete this topic Meningococcal B Vacine Aged Out No lo nger eligible based on patient's age to complete this topic Pneumococcal Vaccine: Pediatrics (0 to 5 Years) and At-Risk Patients (6 to 64 Years) Aged Out No longer eligible b ased on patient's age to complete this topic RSV Immunization Patients Under 20 months Aged Out No longer eligible b ased on patient's age to complete this topic Varicella Vaccines Aged Out No longer eligible based on patient's age to complete this topic Procedures Procedure Name Priority Date/Time Associated Diagnosis Comments HEPATITIS C SCREENING Routine 10/07/2023 LIPID PANEL Routine 10/07/2023 DEPRESSION SCREENING Routine 09/30/2023 HPV Routine 02/02/2023 COLONOSCOPY Routine 03/24/2022 from Last 3 Months or Most Recently Relevant to Health Maintenance Results * Hepatitis C Screening (10/07/2023) Pathologist [facility] Hepatitis C Screening abstracted Historical Provider HEALTH MAINTENANCE Final Result * (ABNORMAL) Lipid panel (10/07/2023) [facility] LDL/HDL Ratio 4 0 - 4 Triglycerides 147 0 - 150 mg/dL Cholesterol 299(A) 0 - 200 mg/dL HDL 68 >=40 mg/dL LDL Cholesterol 202(A) 0 - 100 mg/dL Blood Venous blood specimen / Unknown Historical Provider LAB BLOOD ORDERABLES Kelli l Result * Depression Screening (09/30/2023) Pathologist [facility] Depression Screening abstracted Historical Provider HEALTH MAINTENANCE Final Result * Cervical Cancer Screening: HPV (02/02/2023) Pathologist [facility] Cervical Cancer Screening: HPV normal, abstracted Historical Provider HEALTH MAINTENANCE Final Result * Colonoscopy (03/24/2022) [facility] Colonoscopy no interpretation , abstracted Anatomical Region Laterality Modality Other Historical Provider HEALTH MAINTENANCE Final Result from Last 3 Months or Most Recently Relevant to Health Maintenance Insurance MEDICARE MEDICAID - [place] Care Teams Adoption Specialist Relationship Specialty Start Date End Date Christine Martinez MD [address] [place] [phone] PCP - General Internal Medicine 04/10/24
--- OUTSIDE RECORDS SUMMARY | 2024-04-16 22:07 | XMS_ITS | Encounter Summary ---
Author Organization [employer] Address [address] [place] [address] Care Team Providers Care Rotary Kiln Operator Name Role Phone Christine Martinez MD Primary Care Prov ider Reason for Visit * Reason Onset Date Comments Oral Swelling 04/16/2024 Encounter Details Date Type Department Care Team (Late st Contact Info) Description 04/16/2024 Telephone Adult Medicine [address] [phone] Christine Martinez MD [address] [place] [phone] Oral Swelling Social History Tobacco Use Types Packs/Day Years [...] Progress Notes * Tasneem Conway RN - 04/16/2024 1:05 PM EST Spoke with the pt She still with laryngitis Did have a cough that has improved Also got a humidifier and offers some improvement Has a feeling that there is a knot in her throat and hard to swallow, sometimes with numbness Feels loopy and dizzy. Some times feels like her chest is tight with chest pain that comes and goes. Feels like the medicine has helped. The cough is improved. Chest pain is in the middle and does not radiate. Sometimes feels like heart is racing, a couple times throughout the day. No N/T in the arms, no neck or jaw pain. Does get a little light headed and dizzy Does get nausea no vomiting. Mouth is very dry. Advised ER for eval. She will go to [facility], Expect called. * Moon Ray - 04/16/2024 12:17 PM EST Patient call requires triage: Symptoms patient is presenting: patient was seen last Tuesday and was given an antibiotic and prednisone patient feels like her throat is swelling up, feeling light headed and dizzy funny taste in mouth, she states her chest feels tight as well. How long has patient had these symptoms?: since last week For ALL patients calling to schedule any appointment (routine, sick visit, follow up, consult, etc.) in the outpatient setting please ask the following questions: Do you have fever of higher than 101, sore throat with difficulty swallowing or severe shortness ofbreath? no If YES to any of these above symptoms, send a message to triage and do not book. Red dot. If no, an audio or video visit should be booked. Have you had close contact with someone with Coronavirus in the last 14 days? no Have you traveled abroad? no Have you traveled recently to another state outside of [place], [place], [place], [place], [place], [place], [place]? no o If yes, did you [...] gather 3rd alliance party insurance information Third Alliance Party Information: not applicable PCP: Christine Toscano MD Payor: MEDICARE / Plan: MEDICARE PART A & B / Product Type: Medicare / documented in this encounter Plan of Treatment Not on file documented as of this encounter Visit Diagnoses Not on filedocumented in this encounter Care Teams Rotary Kiln Operator Relationship Specialty Start Date End Date Christine Martinez MD [address] [place] [id number] PCP - General Internal Medicine 04/10/24 documented as of this encounter
[2024-04-16 22:52] VITALS: BP 128/62; PULSE 66; RESP 20; TEMP 36.8; O2SAT 99
[2024-04-16 23:00] LABS: C Reactive Protein 0.29 mg/dL (< or = 0.50)
[2024-04-16] MEDS: predniSONE 20 MG TABLET 60 MG PO (23:32)
[2024-04-16 23:37] VITALS: BP 128/62; PULSE 66; RESP 20; TEMP 36.8; O2SAT 99
[2024-04-17 11:46] LABS: Adenovirus PCR Not Detected (Not Detect.); Bordetella parapertussis PCR Not Detected (Not Detect.); Bordetella pertussis PCR Not Detected (Not Detect.); Chlamydia pneumoniae PCR Not Detected (Not Detect.); Coronavirus 229E PCR Not Detected (Not Detect.); Coronavirus HKU1 PCR Not Detected (Not Detect.); Coronavirus NL63 PCR Not Detected (Not Detect.); Coronavirus OC43 PCR Not Detected (Not Detect.); Human metapneumovirus PCR Not Detected (Not Detect.); Influenza A PCR Not Detected (Not Detect.); Influenza B PCR Not Detected (Not Detect.); Mycoplasma pneumoniae PCR Not Detected (Not Detect.); Parainfluenza 1 PCR Not Detected (Not Detect.); Parainfluenza 2 PCR Not Detected (Not Detect.); Parainfluenza 3 PCR Not Detected (Not Detect.); Parainfluenza 4 PCR Not Detected (Not Detect.); RSV PCR Not Detected (Not Detect.); Rhino/Enterovirus PCR Not Detected (Not Detect.)
[2024-04-17 11:52] LABS: SARS-CoV-2 PCR Not Detected (Not Detect.)
== END 2024-04-16 23:37 | disposition home or self-care (01) ==
PROVIDERS: Physician Assistant Medical; Emergency Provider Emergency Medicine; PCP Internal Medicine
DX: J04.0 Acute laryngitis (principal); R07.89 Other chest pain; R42 Dizziness and giddiness; M54.2 Cervicalgia; Z03.818 Encounter for observation for suspected exposure to other biological agents ruled out; Z79.899 Other long term (current) drug therapy
CPT/HCPCS: 0241U; 70360; 71046; 80053; 83735; 84484; 85025; 86140; 87633; 87651; 93005; 99283; 99284

== ENCOUNTER → 2024-04-16 16:08 | Outpatient (BNV) | payer OTHER, SELFPAY | PROVIDERS: Emergency Provider Emergency Medicine; PCP Internal Medicine; Visit Provider Internal Medicine | DX: R94.31 Abnormal electrocardiogram [ECG] [EKG] (principal); R07.9 Chest pain, unspecified | CPT/HCPCS: 93010 ==

== ENCOUNTER → 2024-04-16 16:43 | Outpatient (BNV) | payer OTHER, SELFPAY | PROVIDERS: Visit Provider Nuclear Medicine | DX: R07.89 Other chest pain (principal) | CPT/HCPCS: 70360; 71046 ==